=== PATIENT | female | born 1970 | race Caucasian/White ===

== ENCOUNTER → 2019-02-13 | Outpatient (CLI) | payer OTHER, SELFPAY ==
--- NOTE | 2019-02-13 13:12 | BI_ITS ---
MAMMOGRAPHY - BILATERAL SCREENING REASON FOR EXAM: Female, 48 years old. Routine annual screening examination. PERTINENT HISTORY: Non-contributory. TECHNIQUE: Digital bilateral breast sheryl (3D mammographic acquisition) in the CC and MLO projections. 2-D mediolateral oblique (MLO) and craniocaudad (CC) views of both breasts were obtained. CAD: Full Field Digital Mammography with Computer Added Detection was performed. COMPARISON: Comparison is made with prior examination dated June 02, 2016 and May 06, 2015. FINDINGS: Breast Composition: The breasts are extremely dense, which lowers the sensitivity of mammography. There are no dominant masses or suspicious calcifications. Stable benign-appearing bilateral axillary lymph nodes. No other significant abnormalities are identified. There has been no significant change since the prior study. BI/SCREEN MAMM (CAD) W/SHERYL BILAT IMPRESSION: Stable bilateral screening mammogram. Yearly follow-up mammogram recommended. (A) ASSESSMENT CATEGORY: BIRADS Category 1: Negative. A letter regarding these results will be sent to the patient by the facility within 30 days. Approximately 10% of breast cancers are not detected by mammography. A normal mammogram should not delay biopsy of a clinically suspicious abnormality. [id number] Electronically Signed: Alfred Hobbs, at 8:38 EDT , Service support ,
== END | disposition home or self-care (01) ==
LOC: OPBI 13:10
PROVIDERS: Family Provider Family Medicine; PCP Family Medicine; Referring Provider Obstetrics & Gynecology; Visit Provider Obstetrics & Gynecology
DX: Z12.31 Encounter for screening mammogram for malignant neoplasm of breast (principal)
CPT/HCPCS: 77063; 77067

== ENCOUNTER → 2019-07-17 09:38 | Outpatient (CLI) | payer OTHER, SELFPAY ==
[2019-07-17 12:49] LABS: Thyroid Stim Hormone (TSH) 2.69 uIU/mL (0.358-3.74)
== END ==
PROVIDERS: Family Provider Family Medicine; PCP Family Medicine; Referring Provider Family Medicine; Visit Provider Family Medicine
DX: K21.9 Gastro-esophageal reflux disease without esophagitis (principal)
CPT/HCPCS: 36415; 84443

== ENCOUNTER 2019-08-20 11:45 | Emergency (ER) | payer OTHER, SELFPAY ==
[2019-08-14 15:49] VITALS: BMI 20.8
[2019-08-20 11:46] VITALS: BP 163/98; PULSE 101; RESP 18; TEMP 36.6; O2SAT 98; BMI 23.0
--- NOTE | 2019-08-20 11:50 | RAD_ITS ---
STUDY: X-RAY - RIGHT SHOULDER REASON FOR EXAM: Female, 49 years old. Trauma, shoulder pain, limited range of motion. TECHNIQUE: 2 view(s) of the shoulder. COMPARISON: None. FINDINGS: Acute anterior dislocation of glenohumeral joint. No obvious fracture. Normal acromioclavicular joint. Normal acromion. Normal humeral head and visualized proximal humerus. The soft tissue structures are unremarkable. Normal visualized pulmonary apex. RAD/Shoulder min 2 Views IMPRESSION: Acute anterior dislocation glenohumeral joint. Electronically Signed: Amarjit Lazo MD at 12:48 EST Tel , Service support ,
--- NOTE | 2019-08-20 11:57 | ED.VIS.GEN ---
History of Present Illness Chief Complaint: Disclocation Informant: Patient Onset: Today Current Severity: Moderate Maximum Severity: Moderate Narrative: Fell down 13 steps but only injured her right shoulder. No head injury no loss of consciousness no neck pain no chest abdominal pain or back pain. She has no other lower or left upper extremity injuries. She has a deformity of the right shoulder with quite a bit of pain. Past Medical History - Allergies and Home Meds Allergies/Adverse Reactions: Allergies doxycycline Allergy (Unknown, Verified 08/20/19 11:49) Unknown sertraline Allergy (Unknown, Verified 08/20/19 11:49) Unknown ibuprofen [From Motrin] Allergy (Verified 08/20/19 11:49) Rash Primary Care Physician: Dev Field MD [Primary Care Provider] - Past Medical History: None Surgical History: - - section Smoking Status: Never smoker Review of Systems General: Reports: - - No loss of consciousness Eyes: Reports: Visual changes - bilaterally Cardiovascular: Denies: Chest pain Respiratory: Denies: Dyspnea Gastrointestinal: Denies: Abdominal pain Musculoskeletal: Reports: Extremity Pain Skin: Denies: Wounds Neurological: Denies: Headache, Weakness, Parasthesia Hematologic: Denies: Easy bruising, Easy bleeding Physical Exam Vital Signs/Narrative: Vital Signs Temp Pulse Resp BP Pulse Ox 08/20/19 11:46 97.8 F 101 H 18 163/98 H 98 General: Acute Distress Head: Normocephalic, Atraumatic Eyes: Perrl ENT: - - No facial trauma Neck: - - No C-spine tenderness Cardiovascular: Regular rate, Regular rhythm Respiratory: No distress, CTA bilaterally Abdomen: Soft, Nontender Back: Nontender, Normal Inspection Extremities: - - There is an obvious inferior dislocation of the right shoulder. No AC joint tenderness. Distal pulses are intact Skin: Normal color. Negative for: Trauma Neurological: Normal Strength, Normal Sensation Psychological: - - Somewhat anxious Diagnostic/Tx/Re-eval Chest X-Ray - ED: 1 View, 2 View Right shoulder x-ray interpreted by me shows a right shoulder dislocation. There are no bony abnormalities no signs of fracture. - Medical Decision Making Patient was reduced without any complications. I will discharge in stable condition. Procedures Procedure(s): Procedural sedation: After proper consent was obtained, patient had not eaten since last night, she is a healthy patient without any medical problems. She received a total of 50 mg of propofol. Patient tolerated sedation well. Shoulder reduction: A modified Milch technique was used for shoulder reduction, shoulder reduced quite well patient had no complications. A sling and swath was applied afterwards. ED Disposition - Plan for ED Patient: Disposition: Home or Assisted Living Instructions: DISLOCATION: SHOULDER (Reduced) Prescriptions: Hydrocodone Bitart/Apap 5-325 [[place] 5MG-325MG] 1 tab PO Q4H PRN PRN 2 Days #6 tab PRN Reason: Pain Prescription Printed Referrals: Trung Eduardo DO [STAFF PHYSICIAN] - 3-5 Days
[2019-08-20] MEDS: fentaNYL 100 MCG/2 ML Ampul 50 MCG IV (12:09)
[2019-08-20 12:15] VITALS: BP 170/101; BP 182/95; PULSE 91; PULSE 92; PULSE 94; RESP 18; RESP 22; O2SAT 98
[2019-08-20] MEDS: Propofol 200 MG/20 ML Vial 100 MG IV BOLUS (12:15)
[2019-08-20 12:20] VITALS: BP 175/96; PULSE 83; RESP 16; O2SAT 100
[2019-08-20 12:25] VITALS: BP 169/100; PULSE 84; RESP 18; O2SAT 98
--- NOTE | 2019-08-20 12:25 | RAD_ITS ---
STUDY: X-RAY - RIGHT SHOULDER REASON FOR EXAM: Female, 49 years old. Post reduction, shoulder pain TECHNIQUE: 1 view(s) of the shoulder. COMPARISON: 08/20/2019 1159 FINDINGS: Interval reduction of the glenohumeral joint. No obvious fracture Normal acromioclavicular joint. Normal acromion. Normal humeral head and visualized proximal humerus. The soft tissue structures are unremarkable. Normal visualized pulmonary apex. RAD/Shoulder One View IMPRESSION: Interval reduction of the glenohumeral joint. No obvious fracture. Electronically Signed: Amarjit Lazo MD at 13:23 EST Tel , Service support ,
[2019-08-20 12:30] VITALS: BP 163/85; PULSE 86; RESP 20; O2SAT 98
[2019-08-20 12:35] VITALS: BP 163/85; O2SAT 98
[2019-08-20] MEDS: oxyCODONE 5 MG Tablet PO (13:23)
== END 2019-08-20 13:27 | disposition home or self-care (01) ==
PROVIDERS: Emergency Provider Emergency Medicine; Family Provider Family Medicine; PCP Family Medicine
DX: S43.014A Anterior dislocation of right humerus, initial encounter (principal); H53.9 Unspecified visual disturbance; W10.9XXA Fall (on) (from) unspecified stairs and steps, initial encounter; Y93.9 Activity, unspecified; Y92.9 Unspecified place or not applicable
CPT/HCPCS: 23650; 73020; 73030; 96374; 99284; J7040; A4216

== ENCOUNTER → 2019-08-30 16:54 | Outpatient (CLI) | payer OTHER, SELFPAY ==
[2019-08-23 10:49] VITALS: BMI 23.0
--- NOTE | 2019-08-30 16:54 | MRI_ITS ---
STUDY: MRI RIGHT SHOULDER REASON FOR EXAM: Female, 49 years old. RIGHT shoulder pain and decreased ROM following dislocation 08/20/19 TECHNIQUE: Standardized fat and water weighted pulse sequences were obtained in all 3 orthogonal planes. COMPARISON: Right shoulder x-ray dated August 20, 2019 FINDINGS: There is supraspinatus tendinosis with tendon thickening, but without a demonstrated tendon tear. Normal infraspinatus tendon. Normal subscapularis tendon. Normal teres minor tendon. Normal supraspinatus muscle. Normal infraspinatus muscle. Normal subscapularis muscle. Normal teres minor muscle. Normal glenohumeral articulation. Normal biceps labral complex. Normal intracapsular long biceps tendon. A small truncation tear is present at the anterior aspect of the superior glenoid labrum. The remaining aspects of the labrum are intact. Normal capsulo- ligamentous complex. Normal rotator interval. Normal acromioclavicular articulation. There is a Type II morphology (curved), with a neutral orientation. A small subdeltoid bursal effusion is present. Mild patchy edema is present in the posterior and superior aspect of the humeral head compatible with a mild impaction injury/contusion. Slight concavity is also present in the cortex in this region compatible with an acute Hill-Sachs fracture. Normal visualized coracohumeral and coracoacromial ligaments. Normal quadrilateral space. Normal axillary space. Normal deltoid muscle. Normal trapezius muscle. MRI/Upper Ext Joint Only(Routine) IMPRESSION: 1. Acute and mild Hill-Sachs fracture 2. Small truncation tear of the anterior aspect of superior glenoid labrum. 3. Small joint effusion. 4. Supraspinatus tendinosis. Electronically Signed: Jose Guevara MD at 22:49 EST , Service support ,
== END ==
PROVIDERS: Family Provider Family Medicine; PCP Family Medicine; Referring Provider Orthopaedic Surgery; Visit Provider Orthopaedic Surgery
DX: S43.004A Unspecified dislocation of right shoulder joint, initial encounter (principal); M25.311 Other instability, right shoulder
CPT/HCPCS: 73221

== ENCOUNTER 2019-11-15 09:30 | Outpatient (RCR) | payer OTHER, SELFPAY ==
[2019-09-02 08:29] VITALS: BMI 23.0
--- NOTE | 2019-09-11 11:50 | HP.PTEVAL ---
Patient's Visit Information MICHELLE JIANG is a 49 year old F referred to Physical Therapy by Collins Borjas DO with a diagnosis of RIGHT SHOULDER DISLOCATION/ANTERIOR INSTABLITY/HILL SCAKS LESION. Date of Evaluation: 09/11/19 Physical Therapist: Cesar Park, PT, Cert MDT, OCS - Visit Plan Frequency: 2x /Week Duration: 8 WEEKS Plan: PRECAUTION AVOID EXTREME ER AND ADDUCTION. PT INTERVENTIONS WITH AAROM/AROM/ISOMTRICS,PROGRESS STRENGTHENING RTC/SCAPULAR,POSTURAL EX'S,CP - Subjective Findings: This 49 y/o female presents to physical therapy with right shoulder dislocation /anterior instablity/hillscah lesion. Patient fell down the steps Aug 20 fell down stairs caused dislocation of shoulder . Patient went ER had x-rays showed dislocation then MD had to relocated shoulder manually. Patient went to Dr Veliz on 08/23 then had MRI showed labral torn and [place] scah lesion. Patient had sling for comfort then finally removed. Pain located anterior shoulder described sharp. Patient has occassional tingling in arm . Patient pain affects self hygine ,ADL'S ,housework tasks above 90 degrees. Patient pain affects sleeping on right side. Patient shoulder pain affects QOL and function. Patient taking muscle relaxers. VOCATION: RN. SOCIAL: - Pain Right Shoulder Pain Intensity (Out of 10): 7 Pain Intensity Range: 10 - Objective POSTURE: mild foward posture. PALAPTION: tender anterior shoulder. NEURO: c/o parathesia/tingling ,reflexes intact. AROM: shoulder flexion ~90 degrees,abduction ~85 degrees. PROM: shoulder flexion ~150 degrees ,abd ~155 degrees in scaption,ER ~70 degrees. MMT: RTC 3+/5 ,DELTOID ~ 3-/5 - Special Tests R Shoulder Drop Sign - IS Test: Negative R Shoulder Apprehension Test - Anterior Instability: Positive R Shoulder Sulcus Sign - Inferior Laxity: Negative - Goals Goal 1:: Independant with HEP Goal Time Frame: 6-8 Weeks Goal 2:: Patient to decrease shoulder pain by 75% or > to improve function. Goal Time Frame: 6-8 Weeks Goal 3:: Patient to improve shoulder AROM flexion /abd 150 degrees or > to improve function with ADL'S. Goal Time Frame: 6-8 Weeks Goal 4:: Patient to increase strength of right shoulder RTC 4/5 and deltoid to 4-/5 to improve function with ADLS and RTW. Goal Time Frame: 6-8 Weeks Goal 5:: Patient able to return to work and housework tasks above 90 degrees to improve function with ADL'S Goal Time Frame: 6-8 Weeks Goal 6:: Patient to improve quick dash shoulder by 10 points or > to improve QOL and function. Goal Time Frame: 6-8 Weeks - Rehabilitation Potential Physical Therapy Diagnosis: This patient has right shoulder pain from anterior dislocation with pain ,decrease ROM,strength impairs ADLS' ,housework tasks and RTW,Tthus benifit from skilled PT. Rehabilitation Potential: Good - Anticipated Interventions Patient/Client Instruction: Educate patient on: Condition, Plan of Care For the Purpose of:: To decrease pain, To increase ROM, To improve muscle performance and motor function, To improve ability to perform ADL's, To increase tolerance to activity/condition/position, To improve ability of physical actions for home/community/work/leisure, To decrease soft tissue restriction, To increase flexibility/ROM, To assume or resume ADL's, To reduce risk of recurrence, To improve ability to perform tasks related to life management Therapeutic Exercise to Include: Strength training, Postural training, Passive ROM, Active ROM Comment: RTC/SCAPULAR For the Purpose of:: To decrease pain, To increase ROM, To improve muscle performance and motor function, To improve ability to perform ADL's, To increase tolerance to activity/condition/position, To improve ability of physical actions for home/community/work/leisure, To improve health of tissue, To decrease soft tissue restriction, To increase flexibility/ROM, To improve tolerance to ADL's Thank you for the opportunity to evaluate your patient. For Medicare and Medicare HMO plans, please review the plan of care and approve it. It will need to be FAXED BACK to us at [phone] for Medicare purposes. For Medicare only, by signing this I certify the plan of care. Please let me know if there are questions or concerns regarding this plan of care. Physician Signature: Date:
--- NOTE | 2019-12-31 12:52 | HP.PT.NRP ---
MICHELLE JIANG was seen in my office for initial evaluation on 09/11/19. The following Plan of Care was established for this patient: Initial Frequency: 2x /Week Initial Duration: 8 WEEKS Patient/Client Instruction: Educate patient on: Condition, Plan of Care For the Purpose of:: To decrease pain, To increase ROM, To improve muscle performance and motor function, To improve ability to perform ADL's, To increase tolerance to activity/condition/position, To improve ability of physical actions for home/community/work/leisure, To decrease soft tissue restriction, To increase flexibility/ROM, To assume or resume ADL's, To reduce risk of recurrence, To improve ability to perform tasks related to life management Therapeutic Exercise to Include: Strength training, Postural training, Passive ROM, Active ROM For the Purpose of:: To decrease pain, To increase ROM, To improve muscle performance and motor function, To improve ability to perform ADL's, To increase tolerance to activity/condition/position, To improve ability of physical actions for home/community/work/leisure, To improve health of tissue, To decrease soft tissue restriction, To increase flexibility/ROM, To improve tolerance to ADL's This patient was last seen in our office . Pertinent comments regarding their Physical therapy will appear below: Patient seen for PT for shoulder pain with patient had MRI showed bicep tendon tear and labrum . Patient PT has focused on HEP ,ROM ,strengthening RTC/scapular,postural ex's stretching. Doing well with strength RTC 12/07 ,limited with AROM with [place] activities,. Patient seen DR 12/22 thus is d/c. At this point I will be discontinuing this patient from physical therapy. I would be happy to see this patient again in the future if found appropriate by the physician. Thank you! Cesar Park, PT, Cert MDT, OCS
== END 2019-11-15 19:00 | disposition home or self-care (01) ==
LOC: PT 09:30
PROVIDERS: Family Provider Family Medicine; PCP Family Medicine; Referring Provider Orthopaedic Surgery; Visit Provider Orthopaedic Surgery
DX: S43.004D Unspecified dislocation of right shoulder joint, subsequent encounter (principal); M25.311 Other instability, right shoulder; S42.291D Other displaced fracture of upper end of right humerus, subsequent encounter for fracture with routine healing
CPT/HCPCS: 97110; 97161

== ENCOUNTER → 2020-02-26 10:18 | Outpatient (CLI) | payer OTHER, SELFPAY ==
[2019-12-23 09:53] VITALS: BMI 23.0
--- NOTE | 2020-02-26 10:20 | BI_ITS ---
MAMMOGRAPHY - BILATERAL SCREENING 3-D TOMOSYNTHESIS REASON FOR EXAM: Female, 50 years old. Routine screening PERTINENT HISTORY: NO FAM HX -- CURRENT BC X 20+ YRS. -- NO SX. TECHNIQUE: 2-D mammograms and 3-D Tomosynthesis of the breast (s) were performed. CAD was performed. COMPARISON: 02/13/2019 FINDINGS: The breast composition is heterogeneously dense that can obscure small breast masses. Scattered benign calcifications are seen. No dense spiculated masses or suspicious microcalcifications are identified. No architectural distortion is identified. There is no skin thickening or retraction. There has been no significant change since the prior study. BI/SCREEN MAMM (CAD) W/SHERYL BILAT IMPRESSION: No mammographic signs of malignancy. Routine yearly mammograms recommended. ASSESSMENT CATEGORY: BIRADS Category 2: Benign. A letter regarding these results will be sent to the patient by the facility within 30 days. FOLLOW UP RECOMMENDATION: Yearly follow up mammogram recommended. (A) Approximately 10% of breast cancers are not detected by mammography. A normal mammogram should not delay biopsy of a clinically suspicious abnormality. Electronically Signed: Zi Blackburn MD at 11:19 EDT , Service support ,
== END ==
PROVIDERS: PCP Family Medicine; Referring Provider Obstetrics & Gynecology; Visit Provider Obstetrics & Gynecology
DX: Z12.31 Encounter for screening mammogram for malignant neoplasm of breast (principal)
CPT/HCPCS: 77063; 77067

== ENCOUNTER 2020-09-01 07:01 | Day surgery (SDC) | payer OTHER, SELFPAY ==
[2020-06-11 08:43] VITALS: BMI 23.5
[2020-09-01] VITALS (7 sets, daily range): BP systolic 127–144; BP diastolic 77–94; PULSE 79–101; RESP 14–16; TEMP 36.1–36.6; O2SAT 96–100; BMI 25.1
--- NOTE | 2020-09-01 07:32 | HP.PCM_ITS ---
Problem List (1) Screening for intestinal cancer Status: Acute (2) GERD (gastroesophageal reflux disease) Status: Acute History and Physical Date of Admission: 09/01/20 Intake Visit Reasons: Update history/physical EGD and C-scope Allergies doxycycline Allergy (Unknown, Verified 06/11/20 08:56) Unknown sertraline Allergy (Unknown, Verified 06/11/20 08:56) Unknown ibuprofen [From Motrin] Allergy (Verified 06/11/20 08:56) Rash Medications norethindrone 1 mg-ethinyl estradiol 35 mcg tablet 1 tab PO DAILY 08/14/19 [History Confirmed 06/11/20] [facility] Medical History (Updated 06/11/20 @ 08:55 by Elsa Guerrero) Screening for intestinal cancer (Acute) GERD (gastroesophageal reflux disease) (Acute) Allergic rhinitis (Acute) Anxiety and depression (Acute) Herpes labialis (Acute) Hyperlipidemia (Acute) Lumbar radiculopathy (Acute) Migraine (Acute) Surgical History (Updated 08/20/19 @ 12:[address] Loyd Lawrence MD) History of (Acute) Family History Mother Hypertension Hyperlipidemia Lung cancer Heart disease Father Heart disease Hypertension Kidney disease Sister Cervical cancer Brother Hypertension Social History (Updated 06/11/20 @ 09:[address] Cedrick Pulliam MD) Smoking Status: Never smoker alcohol intake: never substance use type: does not use additional social history: does not use aspirin or ibuprofen HPI HPI HPI: MICHELLE JIANG, is a 50 F who presents to the office today for repeat surgical consultation for consideration of esophagogastroduodenoscopy and colonoscopy. She was having significant GERD. Significant amount of stress in her life. After I saw her unfortunate she fell down stairs causing a dislocation of her right shoulder. She had to delay her endoscopy. She has never had a screening colonoscopy. Her GERD symptoms have improved but she still takes antacids My notes from September 03 2019 reflect the following: HPI: MICHELLE JIANG, is a 49 F who presents to the office today for surgical consultation regarding heartburn/gastroesophageal reflux disease as well as need for screening colonoscopy. The patient recently lost her mother to lung cancer. At the same setting her had an acute myocardial infarction. There is been a significant amount of stress. However over the past year or more she has had severe heartburn. Is worse at night. She is medication dependent on pantoprazole. If she stops that medicine she gets recurrent symptoms. She has not had any change in her bowel habits. No bright red blood per rectum or melena. She does have a family history where she thinks both her mother and she thinks her father both had colon polyps. The patient has had her primary care physician Dr Dev Field reviewed these findings and he is referring her to me for consideration of evaluation of the symptoms with a upper and lower endoscopy. A written copy of my surgical consult recommendations will be returned to him. HPI HPI HPI: MICHELLE JIANG, is a 50 F who presents to the office today for Exam Const General: cooperative, healthy appearing, comfortable, no acute distress Nutritional Appearance: average body habitus Orientation: alert, awake HENMT Head: normal to inspection Resp Effort & Inspection: normal respiratory effort Auscultation: clear to auscultation bilaterally Cardio Rate: regular rate Rhythm: regular rhythm GI Palpation: soft, no hepatosplenomegaly Auscultation: normal bowel sounds Skin General: no rashes or lesions noted Neuro Cognition: normal cognition Extrem General: no calf tenderness Psych Affect: normal affect Assessment & Plan Problems 1. Screening for intestinal cancer Z12.10 2. Gastroesophageal reflux disease, esophagitis presence not specified K21.9 Plan I recommended the patient a combined esophagogastroduodenoscopy the past biopsy and colonoscopy with possible biopsy or polypectomy is indicated. She is aware of the technique, benefit, risk and alternatives. She has had an opportunity to ask and have questions answered. We will schedule and proceed at her discre tion. She does present with her today who also proceeds with a screening colonoscopy. Her right shoulder dislocation now is healed and she is able to pursue the bowel prep. It is of note that her GERD symptoms have improved but not resolved. Copy: Dr Dev Pulliam M.D., F.A.C.S. Orders Orders: Colonoscopy Today EGD Today Coding Level of Care Code Off vis,est,level 2 Diagnoses Screening for intestinal cancer Z12.10 Gastroesophageal reflux disease, esophagitis presence not specified K21.9 ??Esophagitis presence: esophagitis presence not specified I have re-examined the patient. There are no clinical changes since date of exam. Procedure Criteria Procedure Type: Elective COVID Risk Discussion: The surgeon/proceduralist and patient have discussed in detail the risk of exposure to and/or potential harm posed by the COVID-19 virus with having a surgery/procedure at this time versus the risk of delaying the surgery/procedure. It is not possible to know either the risk of delaying the surgery or procedure or chance of getting an infection with perfect accuracy, but a joint decision was made between the patient and the surgeon/proceduralist to proceed at this time with the scheduled surgery/procedure as indicated on the consent form.
[2020-09-01 07:33] LABS: Internal QC Validated? YES +Cl - CLEAR BKGD; Pregnancy, Urine Negative Negative
[2020-09-01] MEDS: Lactated Ringers 1,000 ML 100 ML IV (07:47)
--- NOTE | 2020-09-01 08:00 | IMM_PTH ---
PATIENT: MICHELLE JIANG LOC: EN U#:[id number] AGE/SX: 50/F ROOM: RE09/01/[address]: Dr. Cedrick Pulliam MD : 1970 BED: DIS: 09/01/2020 SPEC #: [id number] RECD: 09/01/20 12:33 STATUS: CLAUDIA RERobin #: [id number] KENNY: 09/01/20 08:[address]: Cedrick Pulliam DEPT: IMMUNOHISTOCHEMISTRY RECD BY: Emelia Richter ENTERED: 09/01/20 12:33 SP TYPE: IMMUNO OTHR DR: Dr. Dev Field MD Tissues: B - Stomach, NOS Procedures: H Pylori (initial) PHYSICIAN & INSTITUTION [place] [id number] SPECIMEN INFORMATION: Tissue Source: B - Antrum polyp biopsy Clinical Info: Intestinal cancer screening; GERD, esophagitis Specimen Number: [id number] CPT code: 83880 METHODOLOGY: Deparaffinized sections of prefer/formalin-fixed tissue or PAP/DQ stained slides are incubated with monoclonal/polyclonal antibodies/oligonucleotide probes. Localization is made via biotin free immunoperoxidase method. Appropriate controls are performed and reacted as expected. Results on target cell population are indicated in the following table: RESULTS: ANTIBODY / CLONE RESULT Block B H Pylori (polyclonal) positive These tests were developed and their performance characteristics determined by [facility]. They may not have been cleared or approved by the U.S. Food and Drug Administration. The FDA has determined that such clearance or approval is not necessary. INTERPRETATION: Antrum polyp, biopsy: Positive for abundant Helicobacter pylori organisms. AM:jermaine 09/02/20
--- NOTE | 2020-09-01 08:00 | COLBX_PTH ---
PATIENT: MICHELLE JIANG LOC: EN U#:[id number] AGE/SX: 50/F ROOM: RE09/01/[address]: Dr. Cedrick Pulliam MD : 1970 BED: DIS: 09/01/2020 SPEC #: [id number] RECD: 09/01/20 11:42 STATUS: CLAUDIA CRUZ #: [id number] KENNY: 09/01/20 08:[address]: Cedrick Pulliam DEPT: SURGICAL PATHOLOGY RECD BY: Paul Shipley ENTERED: 09/01/20 12:10 SP TYPE: COLON BX OTHR DR: Dr. Dev Field MD Tissues: A - Duodenum, NOS B - Gastric mucous membrane C - Esophagus, NOS D - COLON BIOPSY Procedures: Surgery Specimen Level IV HEADER OPERATION: [place] [place] DIAGNOSIS: Screening for intestinal cancer, GERD, esophagitis TISSUE SUBMITTED: A - Duodenum biopsy, B - Antrum polyp biopsy for H. pylori and path, C - Distal esophagus biopsies, D - Random colon biopsies MICROSCOPIC DIAGNOSIS A. Duodenum, biopsy: No pathologic change. B. Gastric antrum, biopsy: Chronic active gastritis. See comment. C. Distal esophagus, biopsy: Fragments of gastric mucosa with chronic inflammation. Fragments of squamous mucosa with no pathologic change. D. Colon, random biopsy: Melanosis coli. AM:jermaine 09/02/20 COMMENT B. The results of immunohistochemistry for Helicobacter pylori will be reported separately ([id number]). MICROSCOPIC DESCRIPTION Slides are reviewed. GROSS DESCRIPTION A - Received in fixative is one container labeled with the patient's name and designated duodenum biopsy. The specimen consists of one irregular fragment of light leung soft tissue that measures 0.3 x 0.3 x 0.1 cm. The specimen is totally submitted in one cassette. B - Received in fixative is one container labeled with the patient's name and designated antrum biopsy. The specimen consists of multiple irregular fragments of light leung soft tissue that in aggregate measure 1 x 0.3 x 0.1 cm. The specimen is totally submitted in one cassette. C - Received in fixative is one container labeled with the patient's name and designated distal esophagus biopsy. The specimen consists of multiple irregular fragments of light leung soft tissue that in aggregate measure 1 x 0.5 x 0.1 cm. The specimen is totally submitted in one cassette. D - Received in fixative is one container labeled with the patient's name and designated random colon biopsy. The specimen consists of multiple irregular fragments of light leung soft tissue that in aggregate measure 1.5 x 1 x 0.1 cm. The specimen is totally submitted in one cassette. / AM:jermaine 09/01/20 TC:2 CPT: 99322 x4
--- NOTE | 2020-09-01 08:41 | OP.CCLET_ITS ---
09/01/2020 Dev Field [address] [place] [address] Re : Upper GI endoscopy procedure for Britany Rogers Dear Dr. Field This procedure was performed on Tuesday, September 01, 2020. My impressions and recommendations are as follows: Impressions : - LA Grade A reflux esophagitis. Biopsied. - Small hiatal hernia. - Chronic gastritis. Biopsied. - Normal examined duodenum. Biopsied. Recommendations : - Await pathology results. - Discharge patient to home. - Resume previous diet. - Continue present medications. - Telephone my office for pathology results in 1 week. My findings are described in the full procedure note, which is enclosed. If I can be of further assistance, please feel free to contact me at Doctor phone number(s): Work: . Sincerely, Cedrick Pulliam MD 09/01/2020 8:40:46 AM This report has been signed electronically.
--- NOTE | 2020-09-01 08:41 | OP.EGD_ITS ---
Patient Name: Britany Rogers Procedure Date: 09/01/2020 8:02 AM Date of : 1970 Age: 50 Procedure: Upper GI endoscopy Indications: Suspected gastro-esophageal reflux disease Providers: Cedrick Pulliam MD Referring MD: Dev Field Medicines: See the Anesthesia note for documentation of the administered medications Complications: No immediate complications. Procedure: Pre-Anesthesia Assessment: - Prior to the procedure, a History and Physical was performed, and patient medications and allergies were reviewed. The patient's tolerance of previous anesthesia was also reviewed. The risks and benefits of the procedure and the sedation options and risks were discussed with the patient. All questions were answered, and informed consent was obtained. Prior Anticoagulants: The patient has taken no previous anticoagulant or antiplatelet agents. ASA Grade Assessment: II - A patient with mild systemic disease. After reviewing the risks and benefits, the patient was deemed in satisfactory condition to undergo the procedure. After obtaining informed consent, the endoscope was passed under direct vision. Throughout the procedure, the patient's blood pressure, pulse, and oxygen saturations were monitored continuously. The gastroscope was introduced through the mouth, and advanced to the second part of duodenum. The upper GI endoscopy was accomplished without difficulty. The patient tolerated the procedure well. Scope In: 8:09:44 AM Scope Out: 8:15:50 AM Total Procedure Duration Time 0 hours 6 minutes 6 seconds Findings: LA Grade A (one or more mucosal breaks less than 5 mm, not extending between tops of 2 mucosal folds) esophagitis with no bleeding was found 38 cm from the incisors. Biopsies were taken with a cold forceps for histology. A small hiatal hernia was present. Diffuse mild inflammation characterized by granularity was found in the gastric antrum. Biopsies were taken with a cold forceps for histology. The examined duodenum was normal. Biopsies were taken with a cold forceps for histology. Impression: - LA Grade A reflux esophagitis. Biopsied. - Small hiatal hernia. - Chronic gastritis. Biopsied. - Normal examined duodenum. Biopsied. Recommendation: - Await pathology results. - Discharge patient to home. - Resume previous diet. - Continue present medications. - Telephone my office for pathology results in 1 week. Procedure Code(s): --- Professional --- 44758, Esophagogastroduodenoscopy, flexible, transoral; with biopsy, single or multiple Diagnosis Code(s): --- Professional --- K21.0, Gastro-esophageal reflux disease with esophagitis K44.9, Diaphragmatic hernia without obstruction or gangrene K29.50, Unspecified chronic gastritis without bleeding CPT copyright 2017 [employer]. All rights reserved. The codes documented in this report are preliminary and upon supervisor cab review may be revised to meet current compliance requirements. Cedrick Pulliam MD 09/01/2020 8:40:46 AM This report has been signed electronically. Number of Addenda: 0 Note Initiated On: 09/01/2020 8:02 AM
--- NOTE | 2020-09-01 08:43 | OP.COLON_ITS ---
Patient Name: Britany Rogers Procedure Date: 09/01/2020 8:16 AM Date of : 1970 Age: 50 Procedure: Colonoscopy Indications: Screening for colorectal malignant neoplasm Providers: Cedrick Pulliam MD Referring MD: Dev Field Medicines: See the Anesthesia note for documentation of the administered medications Patient Profile: Last Colonoscopy: none. The patient's first colonoscopy is today. Complications: No immediate complications. Procedure: Pre-Anesthesia Assessment: - Prior to the procedure, a History and Physical was performed, and patient medications and allergies were reviewed. The patient's tolerance of previous anesthesia was also reviewed. The risks and benefits of the procedure and the sedation options and risks were discussed with the patient. All questions were answered, and informed consent was obtained. Prior Anticoagulants: The patient has taken no previous anticoagulant or antiplatelet agents. ASA Grade Assessment: II - A patient with mild systemic disease. After reviewing the risks and benefits, the patient was deemed in satisfactory condition to undergo the procedure. After I obtained informed consent, the scope was passed under direct vision. Throughout the procedure, the patient's blood pressure, pulse, and oxygen saturations were monitored continuously. The pediatric colonoscope was introduced through the anus and advanced to the cecum, identified by appendiceal orifice and ileocecal valve. The colonoscopy was somewhat difficult due to a tortuous colon. Successful completion of the procedure was aided by applying abdominal pressure. The patient tolerated the procedure well. The quality of the bowel preparation was good. The ileocecal valve and the appendiceal orifice were photographed. Scope In: 8:18:00 AM Scope Withdrawal Time 0 hours 6 minutes 30 seconds Scope Out: 8:32:39 AM Total Procedure Duration Time 0 hours 14 minutes 39 seconds Findings: Hemorrhoids were found on perianal exam. Multiple diverticula were found in the sigmoid colon. Biopsies for histology were taken with a cold forceps from the entire colon for evaluation of microscopic colitis. Impression: - Hemorrhoids found on perianal exam. - Diverticulosis in the sigmoid colon. - Biopsies were taken with a cold forceps from the entire colon for evaluation of microscopic colitis. Recommendation: - Discharge patient to home. - Resume previous diet. - Continue present medications. - Telephone my office for pathology results in 1 week. - Repeat colonoscopy in 10 years for screening purposes. Procedure Code(s): --- Professional --- 90579, Colonoscopy, flexible; with biopsy, single or multiple Diagnosis Code(s): --- Professional --- Z12.11, Encounter for screening for malignant neoplasm of colon K64.9, Unspecified hemorrhoids K57.30, Diverticulosis of large intestine without perforation or abscess without bleeding CPT copyright 2017 [employer]. All rights reserved. The codes documented in this report are preliminary and upon medical insurance coder review may be revised to meet current compliance requirements. Cedrick Pulliam MD 09/01/2020 8:43:30 AM This report has been signed electronically. Number of Addenda: 0 Note Initiated On: 09/01/2020 8:16 AM
--- NOTE | 2020-09-01 08:43 | OP.CCLET_ITS ---
09/01/2020 Dev Field [address] [place] [address] Re : Colonoscopy procedure for Britany Rogers Dear Dr. Field This procedure was performed on Tuesday, September 01, 2020. My impressions and recommendations are as follows: Impressions : - Hemorrhoids found on perianal exam. - Diverticulosis in the sigmoid colon. - Biopsies were taken with a cold forceps from the entire colon for evaluation of microscopic colitis. Recommendations : - Discharge patient to home. - Resume previous diet. - Continue present medications. - Telephone my office for pathology results in 1 week. - Repeat colonoscopy in 10 years for screening purposes. My findings are described in the full procedure note, which is enclosed. If I can be of further assistance, please feel free to contact me at Doctor phone number(s): Work: . Sincerely, Cedrick Pulliam MD 09/01/2020 8:43:30 AM This report has been signed electronically.
== END 2020-09-01 09:48 | disposition home or self-care (01) ==
LOC: EN 07:02 → AC 07:02
PROVIDERS: Anesthesiology; PCP Family Medicine; Referring Provider Family Medicine; Visit Provider Surgery
PROC: 0DJD8ZZ Inspection of Lower Intestinal Tract, Via Natural or Artificial Opening Endoscopic (ICD-10-PCS; CPT 45378; principal; 2020-09-01 07:55)
DX: Z12.11 Encounter for screening for malignant neoplasm of colon (principal); K64.9 Unspecified hemorrhoids; K57.30 Diverticulosis of large intestine without perforation or abscess without bleeding; K29.50 Unspecified chronic gastritis without bleeding; K21.00 Gastro-esophageal reflux disease with esophagitis, without bleeding; K44.9 Diaphragmatic hernia without obstruction or gangrene; Z20.828 Contact with and (suspected) exposure to other viral communicable diseases
CPT/HCPCS: 43239; 45380; 81025; 87426; 88305; 88342; C9803; J7120

== ENCOUNTER → 2020-11-04 | Outpatient (CLI) | payer OTHER, SELFPAY ==
[2020-09-01 07:31] VITALS: BMI 25.1
[2020-11-07 15:42] LABS: H. PYLORI STOOL AG Negative (Negative)
== END | disposition home or self-care (01) ==
LOC: LABSPEC 14:25
PROVIDERS: PCP Family Medicine; Referring Provider Surgery; Visit Provider Surgery
DX: A04.8 Other specified bacterial intestinal infections (principal)

== ENCOUNTER 2020-11-28 20:10 | Emergency (ER) | payer OTHER, SELFPAY ==
[2020-09-01 07:31] VITALS: BMI 25.1
[2020-11-28 20:12] VITALS: BP 159/111; PULSE 126; RESP 16; TEMP 36.6; O2SAT 98; BMI 26.2
--- NOTE | 2020-11-28 20:28 | CT_ITS ---
STUDY: CT BRAIN WITHOUT CONTRAST REASON FOR EXAM: Female, 50 years old. headache RADIATION DOSAGE (If Supplied By Facility): CTDIvol = ( 44.99 ) mGy, DLP = ( 779.24 ) mGycm TECHNIQUE: Transaxial CT imaging of the brain was performed without administration of intravenous contrast material. Individualized dose optimization techniques were used for this CT. COMPARISON: No relevant priors. FINDINGS: Normal soft tissue structures. Normal calvarium. Normal size ventricles and extra-axial spaces for the patient''s age. Normal white matter tracts of the cerebral hemispheres. Normal basal ganglia and thalami. Normal brainstem. Normal cerebellum. Incidental note of tiny midline lipoma in the quadrigeminal cistern, 7 mm in greatest dimension and another anterior to the pineal gland, 4 mm in size. There is no intracranial hemorrhage. There are no findings of an acute ischemic infarction. Normal visualized paranasal sinuses. CT/Brain/Head without Contrast IMPRESSION: No definite acute or significant abnormality seen. Electronically Signed: Jacinto Goodrich MD at 21:12 EDT , Service support ,
--- NOTE | 2020-11-28 20:31 | ED.VIS.GEN ---
History of Present Illness Chief Complaint: General Illness Informant: Patient Onset: Days Context: Gradual Onset Current Severity: Moderate Maximum Severity: Moderate Narrative: Patient presents secondary to headache and just not feeling like herself. She had an epidural injection in her lower back on Monday, . She states that she woke the next morning with a frontal headache. She does have a history of migraines but this was not typical of her migraine headache. She states she overall is not felt her normal self and has had some sweats and loose stools as well. No fever or chills. - Past Medical History (1) Anxiety and depression Status: Chronic (2) High cholesterol Status: Chronic (3) Migraines Status: Chronic (4) GERD (gastroesophageal reflux disease) Status: Chronic Past Medical History - Allergies and Home Meds Allergies/Adverse Reactions: Allergies doxycycline Allergy (Unknown, Verified 11/28/20 20:10) Unknown sertraline Allergy (Unknown, Verified 11/28/20 20:10) Unknown Primary Care Physician: Dev Field MD [Primary Care Provider] - Prior records reviewed: Yes Surgical History: - Lives: With Family Smoking Status: Never smoker Review of Systems General: Reports: Sweats. Denies: Chills, Fever Eyes: Denies: Visual changes - bilaterally ENT: Denies: Bilateral ear pain Cardiovascular: Denies: Chest pain, Palpitations Respiratory: Denies: Dyspnea, Cough Gastrointestinal: Reports: Diarrhea. Denies: Abdominal pain Genitourinary: Denies: Dysuria Musculoskeletal: Denies: Extremity Pain Neurological: Reports: Headache Hematologic: Denies: Easy bruising, Easy bleeding Allergy: Denies: Uticaria Physical Exam Vital Signs/Narrative: Vital Signs Temp Pulse Resp BP Pulse Ox 11/28/20 20:12 97.9 F 126 H 16 159/111 H 98 Inital Vital Signs reviewed: Yes General: Well nourished, Well developed Head: Normocephalic ENT: Moist mucous membranes Neck: Supple, - - No cervical tenderness. Cardiovascular: Regular rate, Regular rhythm Respiratory: No distress, CTA bilaterally Abdomen: Soft, Nontender, Normal bowel sounds Skin: Normal color Neurological: Alert, Oriented x3, Normal Strength, Normal Sensation Psychological: Normal affect Diagnostic/Tx/Re-eval Impressions Brain CT 11/28/20 20:28 IMPRESSION: No definite acute or significant abnormality seen. Electronically Signed: Jacinto Goodrich MD at 21:12 EDT , Service support , 11/28/20 20:28 Brain/Head without Contrast [CT] Stat Laboratory Results 11/28/20 11/28/20 11/28/20 20:24 20:42 20:42 WBC 13.9 H RBC 5.27 Hgb 15.5 H Hct 47.2 H MCV 89.6 MCH 29.4 MCHC 32.8 RDW Std Deviation 42.5 RDW Coeff of Jcarlos 12.9 Plt Count 463 H MPV 9.4 Immature Gran % (Auto) 0.600 Neut % (Auto) 63.5 Lymph % (Auto) 27.1 [place] % (Auto) 7.5 Eos % (Auto) 0.7 Baso % (Auto) 0.6 Absolute Neuts (auto) 8.9 H Absolute Lymphs (auto) 3.77 Nucleated RBC % 0 Sodium 140 Potassium 3.8 Chloride 106 Carbon Dioxide 29.0 Anion Gap 5 BUN 15 Creatinine 0.62 Estim Creat Clear Calc 83.95 Est GFR (MDRD) Af Amer 130 Est GFR (MDRD) Non-Af 108 BUN/Creatinine Ratio 24.3 H Glucose 104 Calcium 9.2 Urine Color Yellow Urine Clarity Sl. Cloudy Urine pH 7.0 Ur Specific [place] 1.015 Urine Protein 30 H Urine Glucose (UA) Normal Urine Ketones Negative Urine Occult Blood 150 H Urine Nitrite Negative Urine Bilirubin Negative Urine Urobilinogen 4 H Ur Leukocyte Esterase 25 H Urine RBC 0-5 SEEN Urine WBC 0-5 SEEN Ur Squamous Epith Cells 0-5 SEEN Urine Bacteria 0 SEEN Urine Mucus 1+ - Medical Decision Making Patient is given a liter IV fluids along with Toradol, Reglan, Benadryl. On repeat evaluation headache is improving. CT scan of the head is unremarkable. Lab work reveals a mildly elevated white count, likely secondary to steroid epidural injection. I do not believe she has a true spinal headache as she is able to sit with her head elevated but leaned back against the bed and notes improvement in her headache. I did encourage increased fluid intake and if she gets to the point where she has true symptoms of a spinal headache she can try increasing her caffeine intake through drinks or caffeine pills. Patient voices understanding and agreement. She will contact her pain management physician. ED Disposition - Plan for ED Patient: Disposition: Home or Assisted Living Diagnosis: Cephalgia Instructions: Self-Care for Headaches Referrals: Dev Field MD [Primary Care Provider] - Sammy Brunson MD [STAFF PHYSICIAN] -
[2020-11-28 20:43] LABS: Bacteria 0 SEEN /hpf (None Seen)
[2020-11-28 20:44] LABS: Color, Urine Yellow (Yellow); Glucose, Dipstick Normal (Normal); Ketone-Dipstick Negative (Negative); Leukocyte Esterase-Dipstick 25 /ul (Negative); Nitrite-Dipstick Negative (Negative); Occult Blood-Urine 150 /ul (Negative); Protein-Dipstick 30 mg/dl (Negative); Specific Gravity, Urine 1.015 (1.002-1.030); Urine Bilirubin Dipstick Negative (Negative); Urine Clarity Sl. Cloudy (Clear); Urine Urobilinogen 4 mg/dl (Normal)
[2020-11-28] MEDS: 0.9% Normal Saline 1,000 ML 1000 ML IV (20:45)
[2020-11-28] MEDS: Ketorolac 30 MG/ML Syringe IV (20:46)
[2020-11-28] MEDS: DiphenhydrAMINE 50 MG/ML Syringe 25 MG IV (20:46)
[2020-11-28] MEDS: Metoclopramide 10 MG/2 ML Vial IV (20:46)
[2020-11-28 20:48] LABS: Absolute Lymphocyte Count 3.77 X10^3/uL (0.83-4.51); Absolute Neutrophil Count 8.9 X10^3/uL (2.0-7.7); Basophil# 0.08 X10^3/uL; Basophil% 0.6 % (0-1); Eosinophils% 0.7 % (0-5); Hematocrit 47.2 % (37-47); Hemoglobin 15.5 g/dL (12.0-15.0); Lymphocyte # 3.77 X10^3/ul (4.0); Lymphocyte % 27.1 % (19-41); Mean Corp Hgb Conc 32.8 g/dL (32-36); Mean Corpuscular Hgb 29.4 pg (27.0-32.0); Mean Corpuscular Volume 89.6 fL (81-99); Mean Platelet Vol. 9.4 fl (6.2-12.0); Monocyte# 1.04 X10^3/uL; Monocyte% 7.5 % (0-10); NRBC Flagged by Analyzer 0 % (0-5); Neutrophil # 8.85 X10^3/uL (2.7-7.7); Neutrophil % 63.5 % (47-70); Platelet Count 463 K/mm3 (150-450); RBC Distribution Width CV 12.9 % (11.6-14.6); RBC Distribution Width SD 42.5 fl (35.1-43.9); Red Blood Count 5.27 M/mm3 (4.2-5.4); White Blood Count 13.9 K/mm3 (4.4-11.0)
[2020-11-28 20:53] LABS: Red Blood Cells-Urine 0-5 SEEN /hpf (0-5); Squamous Epithelial Cells - UA 0-5 SEEN /hpf (5-10); White Blood Cells 0-5 SEEN /hpf (0-5)
[2020-11-28 20:54] LABS: Mucous, Urine 1+ /hpf (<or=2+)
[2020-11-28 21:02] LABS: Anion Gap 5 (5-15); BUN 15 mg/dL (7-18); BUN/Creat Ratio 24.3 RATIO (10-20); Calcium,Total 9.2 mg/dL (8.5-10.1); Chloride 106 mmol/L (98-107); Creatinine, Serum 0.62 mg/dL (0.55-1.02); EST Glomerular Filtration Rate 108 mL/min (>60); Est Glom Filt Rate - Afr Amer 130 mL/min (>60); Estimated Creatinine Clearance 83.95 ml/min; Glucose 104 mg/dL (74-106); Potassium 3.8 mmol/L (3.5-5.1); Sodium Level 140 mmol/L (136-145)
[2020-11-28 21:50] VITALS: PULSE 78; RESP 16
== END 2020-11-28 21:51 | disposition home or self-care (01) ==
PROVIDERS: Emergency Provider Emergency Medicine; PCP Family Medicine
DX: R51.9 Headache, unspecified (principal)
CPT/HCPCS: 70450; 80048; 81001; 85025; 96361; 96374; 96375; 99283; J7030; A4216

== ENCOUNTER → 2021-04-09 07:16 | Outpatient (CLI) | payer OTHER, SELFPAY ==
--- NOTE | 2021-04-09 07:18 | BI_ITS ---
MAMMOGRAPHY - BILATERAL SCREENING REASON FOR EXAM: Female, 51 years old. Routine annual screening examination. PERTINENT HISTORY: Breast screen TECHNIQUE: Digital bilateral breast sheryl (3D mammographic acquisition) in the CC and MLO projections. 2-D mediolateral oblique (MLO) and craniocaudad (CC) views of both breasts were obtained. CAD: Full Field Digital Mammography with Computer Added Detection was performed. COMPARISON: 02/26/2020 FINDINGS: Breast Composition: Dense There are no dominant masses or suspicious calcifications. No other significant abnormalities are identified. BI/SCRN MAMM (CAD)W/SHERYL BILAT IMPRESSION: Stable bilateral screening mammogram. Yearly follow-up mammogram recommended. (A) ASSESSMENT CATEGORY: BIRADS Category 1: Negative. A letter regarding these results will be sent to the patient by the facility within 30 days. BR1 Approximately 10% of breast cancers are not detected by mammography. A normal mammogram should not delay biopsy of a clinically suspicious abnormality. [id number] Electronically Signed: Dev Vaughn DO at 14:33 EDT Tel , Service support ,
== END ==
PROVIDERS: PCP Family Medicine; Referring Provider Obstetrics & Gynecology; Visit Provider Obstetrics & Gynecology
DX: Z12.31 Encounter for screening mammogram for malignant neoplasm of breast (principal)
CPT/HCPCS: 77063; 77067

== ENCOUNTER 2021-06-09 14:23 | Emergency (ER) | payer OTHER, SELFPAY ==
[2021-06-09 14:23] VITALS: BP 139/100; PULSE 85; RESP 20; TEMP 36.2; BMI 23.8
--- NOTE | 2021-06-09 14:33 | EDS_ITS ---
HPI History of Present Illness Chief Complaint: Flank Pain Informant: patient Onset/Context/Timing Onset: Today Narrative Narrative: Sudden nontraumatic left flank pain an hour prior to arrival. She was at the store when symptoms occurred. Sharp sensations intermittent spasms. Nausea without vomiting. States sweaty with the pain. No history of kidney stones. No radicular symptoms. No urinary symptoms. Denies any gastric ulcer history of kidney injury history. Prior similar symptoms: No PFSH PFSH Medical History (Updated 06/09/21 @ 15:[address] Vin Arrieta DO) Allergic rhinitis Anxiety and depression Dislocation of right shoulder joint GERD (gastroesophageal reflux disease) Herpes labialis Hyperlipidemia Lumbar radiculopathy Migraine Screening for intestinal cancer Home Medications norethindrone 1 mg-ethinyl estradiol 35 mcg tablet 1 tab PO DAILY 08/14/19 [History Last Taken Unknown] lansoprazole 30 mg capsule,delayed release 30 mg PO BID #28 cap 09/07/20 [Rx Last Taken Unknown] ibuprofen 600 mg PO Q6H PRN PRN #20 tab 06/09/21 [Rx Last Taken Unknown] ondansetron 4 mg PO Q6H PRN #10 tab 06/09/21 [Rx Last Taken Unknown] oxycodone-acetaminophen [Percocet] 1 tab PO Q6H PRN 3 Days #12 tab 06/09/21 [Rx Last Taken Unknown] tamsulosin [Flomax] 0.4 mg PO DAILY #7 cap 06/09/21 [Rx Last Taken Unknown] Allergy/AdvReac Type Severity Reaction Status Date / Time doxycycline Allergy Unknown Unknown Verified 11/28/20 20:10 sertraline Allergy Unknown Unknown Verified 11/28/20 20:10 Family History Mother Hypertension Hyperlipidemia Lung cancer Heart disease Father Heart disease Hypertension Kidney disease Sister Cervical cancer Brother Hypertension Surgical History History of Social History Smoking Status: Never smoker alcohol intake: never substance use type: does not use additional social history: does not use aspirin or ibuprofen ROS ROS ED Constitutional Constitutional ED: Denies chills, fever(s) or sweats Eyes Eyes: Denies change in vision ENT ENT ED: Denies dysphagia or sore throat Cardiovascular Cardiovascular: Denies chest pain, leg edema, palpitations or racing heartbeat Respiratory/Chest Respiratory/Chest: Denies cough, dyspnea or dyspnea on exertion Gastrointestinal Gastrointestinal: Reports nausea; Denies abdominal pain, diarrhea or vomiting Genitourinary Genitourinary ED: Denies dysuria, hematuria or urinary frequency Musculoskeletal Musculoskeletal: Reports back pain; Denies extremity pain or neck pain Integumentary Denies rash or wounds Neurologic Neurologic: Denies headache(s), paresthesias or weakness EXAM Physical Exam Const Vital Signs: 06/09/21 14:23 06/09/21 14:42 06/09/21 14:45 Temperature 97.2 F L Temperature Source Temporal Pulse Rate 85 69 Respiratory Rate 20 H 15 Respiratory Pattern Normal Blood Pressure 139/100 H 158/98 H Blood Pressure Mean 113 118 Pulse Ox 99 Oxygen Delivery Method Room Air 06/09/21 16:32 Temperature Temperature Source Pulse Rate 90 Respiratory Rate 15 Respiratory Pattern Blood Pressure 135/88 H Blood Pressure Mean Pulse Ox 97 Oxygen Delivery Method Positive well nourished and well developed Constitutional Narrative: Uncomfortable, nontoxic General Appearance ED: well developed HEENT Reports moist mucous membranes normocephalic and atraumatic Eyes PERRL, EOMs intact bilaterally and conjunctivae normal General Eye ED: Yes normal appearance of both eyes Neck no lymphadenopathy and supple General: Negative for tenderness Chest Wall Chest: Negative for tenderness Resp normal respiratory effort and normal air movement Effort and Inspection: symmetric chest movement; Negative for respiratory distress Cardio regular rate, regular rhythm and no murmurs Peripheral Pulses: pulses 2+ throughout GI normal to inspection, nondistended, normoactive bowel sounds and non-tender Palpation: Negative for guarding or rebound tenderness present Back/Spine no thoracic nor lumbar tenderness Back/Spine Narrative: Tender palpation left flank no rash or ecchymosis. no midline tenderness. Extremity normal to inspection General Extremety ED: Negative for edema or tenderness General Extremity: Negative for edema Neuro oriented x3 and no sensory deficits noted Sensorium / Orientation: awake and alert Skin no rashes or lesions noted and no wounds MDM MDM MDM Narrative Medical decision making narrative: Renal stone protocol initiated for colic symptoms. Urine with blood and no infection. Basic labs stable. Morphine Toradol Zofran fluids given. CT scan confirms 3 mm proximal stone. She started on Flomax. Urine strainer for home. Prior to discharge, pain return retreated with morphine with good improvement of symptoms. Skin follow urology. Prescriptions for pain and nausea for home. Return precautions. All questions were answered. Patient is being discharged under pandemic conditions under declared global, national and state disaster activation, with limited medical resources. Patient and community understands this. Results discussed in layman's terms to the patient satisfaction. All questions answered in layman's terms. Patient understands importance of follow-up care as directed. Patient has been instructed to return to the ED immediately if new symptoms, problems, or questions occur. We mutually agree with the plan of disposition. The patient understand that they may call or return with any questions or concerns at any time. Lab Data Attestation: I reviewed the patient's lab results. Labs: Laboratory Results - last 24 hr 06/09/21 06/09/21 06/09/21 14:38 14:38 14:40 WBC 9.6 RBC 4.89 Hgb 14.2 Hct 44.2 MCV 90.4 MCH 29.0 MCHC 32.1 RDW Std Deviation 42.5 RDW Coeff of Jcarlos 12.8 Plt Count 441 MPV 9.8 Immature Gran % (Auto) 0.400 Neut % (Auto) 64.4 Lymph % (Auto) 28.7 [place] % (Auto) 4.7 Eos % (Auto) 1.2 Baso % (Auto) 0.6 Absolute Neuts (auto) 6.2 Absolute Lymphs (auto) 2.76 Nucleated RBC % 0 Sodium 137 Potassium 3.2 L Chloride 103 Carbon Dioxide 26.0 Anion Gap 8 BUN 10 Creatinine 0.67 Estim Creat Clear Calc 76.80 Est GFR (MDRD) Af Amer 118 Est GFR (MDRD) Non-Af 98 BUN/Creatinine Ratio 14.9 Glucose 105 Calcium 8.9 Urine Color Yellow Urine Clarity Sl. Cloudy Urine pH 6.0 Ur Specific [place] 1.020 Urine Protein 15 H Urine Glucose (UA) Normal Urine Ketones Negative Urine Occult Blood 150 H Urine Nitrite Negative Urine Bilirubin Negative Urine Urobilinogen Normal Ur Leukocyte Esterase Negative Urine RBC 10-25 SEEN Urine WBC 0-5 SEEN Ur Squamous Epith Cells 0-5 SEEN Urine Bacteria RARE Urine Mucus 0 SEEN Radiography Diagnostic Testing: Radiology Impression Abdomen/Pelvis CT 06/09/21 14:33 IMPRESSION: 3 mm stone in the left proximal ureter with moderate left hydronephrosis. Electronically Signed: Santiago Mcgill MD at 15:34 EDT Tel , Service support , Discharge Plan Triage Chief Complaint: Flank Pain ED Provider: Vin Arrieta Dx/Rx/DC Orders Clinical Impression: Urolithiasis, Hematuria Instructions: ED Hematuria, ED Kidney Stone w/ Colic Prescriptions: New ibuprofen 600 MG tablet 600 mg PO Q6H PRN PRN (Reason: pain) Qty: 20 RF: 0 ondansetron 4 mg tablet,disintegrating 4 mg PO Q6H PRN (Reason: nausea and vomiting) Qty: 10 RF: 0 oxycodone-acetaminophen [Percocet] 5-325 mg tablet 1 tab PO Q6H PRN (Reason: pain) 3 Days Qty: 12 RF: 0 tamsulosin [Flomax] 0.4 mg capsule 0.4 mg PO DAILY Qty: 7 RF: 0 No Action norethindrone-ethin estradiol 1-35 mg-mcg tablet 1 tab PO DAILY RF: 0 lansoprazole 30 mg capsule,delayed release(DR/EC) 30 mg PO BID Qty: 28 RF: 0 Primary Care Provider: Dev Field Referrals: Jairo Diaz MD [STAFF PHYSICIAN] - 3-5 Days Dev Field MD [Primary Care Provider] - Activity Restrictions/Additional Instructions: 3 mm left proximal stone. Take medications as prescribed. Follow-up with urology. Return if any worsening symptoms. Disposition Disposition: Home, Self Care Discharge Date/Time: 06/09/21 16:34
--- NOTE | 2021-06-09 14:33 | CT_ITS ---
STUDY: CT ABDOMEN AND PELVIS WITHOUT CONTRAST REASON FOR EXAM: Female, 51 years old. Flank pain. Evaluate for kidney stone. RADIATION DOSAGE (If Supplied By Facility): CTDIvol = ( 6.81 ) mGy, DLP = ( 321.36 ) mGycm TECHNIQUE: Transaxial images were obtained from the dome of the diaphragm to the symphysis pubis without oral contrast, and without intravenous contrast. Sagittal and coronal images were reconstructed. Individualized dose optimization techniques were used for this CT. COMPARISON: 08/03/15 FINDINGS: Evaluation of the abdominal viscera is limited in the absence of intravenous contrast. The visualized lung bases are clear. The visualized portions of the heart and pericardium are within normal limits. There are no calcified gallstones present. The liver demonstrates an unremarkable unenhanced appearance. The spleen is normal in size. The pancreas demonstrates an unremarkable unenhanced appearance. The adrenal glands are within normal limits. There is a 3 mm stone in the left proximal ureter with moderate left hydronephrosis. There are additional no renal or ureteral stones. There is no right hydronephrosis. There is a small hiatal hernia. There is no bowel obstruction or inflammation. The appendix is visualized and appears normal. The aorta is normal in caliber. There is no abdominal or pelvic free air, free fluid, fluid collection or lymphadenopathy. There are no destructive osseous lesions. There are stable degenerative changes at L5/S1. CT/Abdomen/Pelvis without Cont IMPRESSION: 3 mm stone in the left proximal ureter with moderate left hydronephrosis. Electronically Signed: Santiago Mcgill MD at 15:34 EDT Tel , Service support ,
[2021-06-09 14:45] VITALS: BP 158/98; PULSE 69; RESP 15; O2SAT 99
[2021-06-09 14:46] LABS: Mucous, Urine 0 SEEN /hpf (<or=2+)
[2021-06-09 14:50] LABS: Absolute Lymphocyte Count 2.76 X10^3/uL (0.83-4.51); Absolute Neutrophil Count 6.2 X10^3/uL (2.0-7.7); Basophil# 0.06 X10^3/uL; Basophil% 0.6 % (0-1); Eosinophil# 0.12 X10^3/uL; Eosinophils% 1.2 % (0-5); Hematocrit 44.2 % (37-47); Hemoglobin 14.2 g/dL (12.0-15.0); Lymphocyte # 2.76 X10^3/ul (0.83-4.51); Lymphocyte % 28.7 % (19-41); Mean Corp Hgb Conc 32.1 g/dL (32-36); Mean Corpuscular Volume 90.4 fL (81-99); Mean Platelet Vol. 9.8 fl (6.2-12.0); Monocyte# 0.45 X10^3/uL; Monocyte% 4.7 % (0-10); NRBC Flagged by Analyzer 0 % (0-5); Neutrophil # 6.18 X10^3/uL (2.7-7.7); Neutrophil % 64.4 % (47-70); Platelet Count 441 K/mm3 (150-450); RBC Distribution Width CV 12.8 % (11.6-14.6); RBC Distribution Width SD 42.5 fl (35.1-43.9); Red Blood Count 4.89 M/mm3 (4.2-5.4); White Blood Count 9.6 K/mm3 (4.4-11.0)
[2021-06-09 14:51] LABS: Color, Urine Yellow (Yellow); Glucose, Dipstick Normal (Normal); Ketone-Dipstick Negative (Negative); Leukocyte Esterase-Dipstick Negative /ul (Negative); Nitrite-Dipstick Negative (Negative); Occult Blood-Urine 150 /ul (Negative); Protein-Dipstick 15 mg/dl (Negative); Urine Bilirubin Dipstick Negative (Negative); Urine Clarity Sl. Cloudy (Clear); Urine Urobilinogen Normal (Normal)
[2021-06-09] MEDS: Ketorolac 15 MG/ML Vial IV (14:51)
[2021-06-09] MEDS: 0.9% Normal Saline 1,000 ML 250 ML IV (14:52)
[2021-06-09] MEDS: Ondansetron 4 MG/2 ML Vial IV (14:52)
[2021-06-09] MEDS: Morphine 4 MG/ML Syringe IV ×2 (14:52→15:43)
[2021-06-09 14:57] LABS: Bacteria RARE /hpf (None Seen); Red Blood Cells-Urine 10-25 SEEN /hpf (0-5); Squamous Epithelial Cells - UA 0-5 SEEN /hpf (5-10); White Blood Cells 0-5 SEEN /hpf (0-5)
[2021-06-09 15:00] LABS: Anion Gap 8 (5-15); BUN 10 mg/dL (7-18); BUN/Creat Ratio 14.9 RATIO (10-20); Calcium,Total 8.9 mg/dL (8.5-10.1); Chloride 103 mmol/L (98-107); Creatinine, Serum 0.67 mg/dL (0.55-1.02); EST Glomerular Filtration Rate 98 mL/min (>60); Est Glom Filt Rate - Afr Amer 118 mL/min (>60); Glucose 105 mg/dL (74-106); Potassium 3.2 mmol/L (3.5-5.1); Sodium Level 137 mmol/L (136-145)
[2021-06-09] MEDS: Potassium Chloride Oral Tablet 20 MEQ 40 MEQ PO (15:43)
[2021-06-09] MEDS: Tamsulosin HCl 0.4 MG Capsule PO (15:43)
[2021-06-09 16:32] VITALS: BP 135/88; PULSE 90; RESP 15; O2SAT 97
== END 2021-06-09 16:34 | disposition home or self-care (01) ==
PROVIDERS: Emergency Provider Emergency Medicine; PCP Family Medicine
DX: N13.2 Hydronephrosis with renal and ureteral calculous obstruction (principal); E78.5 Hyperlipidemia, unspecified; F32.A Depression, unspecified; F41.9 Anxiety disorder, unspecified; K21.9 Gastro-esophageal reflux disease without esophagitis; M54.16 Radiculopathy, lumbar region; G43.909 Migraine, unspecified, not intractable, without status migrainosus; Z79.899 Other long term (current) drug therapy
CPT/HCPCS: 74176; 80048; 81001; 85025; 96361; 96374; 96375; 99284; J7030; A4216; J2405

== ENCOUNTER → 2021-06-29 15:55 | Outpatient (CLI) | payer OTHER, SELFPAY ==
[2021-06-29 16:00] LABS: Mucous, Urine 0 SEEN /hpf (<or=2+); White Blood Cells 0 SEEN /hpf (0-5)
[2021-06-29 17:01] LABS: Color, Urine Yellow (Yellow); Glucose, Dipstick Normal (Normal); Ketone-Dipstick Negative (Negative); Leukocyte Esterase-Dipstick Negative /ul (Negative); Nitrite-Dipstick Negative (Negative); Occult Blood-Urine 25 /ul (Negative); Protein-Dipstick Negative (Negative); Specific Gravity, Urine 1.025 (1.002-1.030); Urine Bilirubin Dipstick Negative (Negative); Urine Clarity Clear (Clear); Urine Urobilinogen Normal (Normal)
[2021-06-29 17:07] LABS: Squamous Epithelial Cells - UA 0-5 SEEN /hpf (5-10)
[2021-06-29 17:08] LABS: Bacteria RARE /hpf (None Seen); Red Blood Cells-Urine 0-5 SEEN /hpf (0-5)
== END ==
PROVIDERS: PCP Family Medicine; Referring Provider Nurse Practitioner Adult Health; Visit Provider Nurse Practitioner Adult Health
DX: R31.29 Other microscopic hematuria (principal)
CPT/HCPCS: 81001

== ENCOUNTER 2021-12-24 20:31 | Emergency (ER) | payer OTHER, SELFPAY ==
[2021-12-24 20:32] VITALS: BP 160/121; PULSE 92; RESP 16; TEMP 36.8; O2SAT 100; BMI 25.2
--- NOTE | 2021-12-24 21:44 | EKG12_ITS ---
Test Reason : HTN Blood Pressure : / mmHG Vent. Rate : 095 BPM Atrial Rate : 095 BPM P-R Int : 160 ms QRS Dur : 080 ms QT Int : 352 ms P-R-T Axes : 013 013 026 degrees QTc Int : 442 ms Normal sinus rhythm Normal ECG Confirmed by GILBERTO TUCKER, SHERITA ([id number]), movie editor BENNETT CARVER ([id number]) on 12/28/2021 9:26:25 AM Referred By: Confirmed By:SHERITA MACIAS MD
[2021-12-24 22:13] VITALS: BP 143/89; PULSE 98; RESP 15; O2SAT 94
[2021-12-24] MEDS: hydrALAZINE 20 MG/ML Vial 5 MG IV (22:24)
[2021-12-24 22:28] LABS: Absolute Lymphocyte Count 1.67 X10^3/uL (0.83-4.51); Absolute Neutrophil Count 11.6 X10^3/uL (2.0-7.7); Basophil# 0.02 X10^3/uL; Basophil% 0.1 % (0-1); Hematocrit 42.8 % (37-47); Hemoglobin 14.1 g/dL (12.0-15.0); Lymphocyte # 1.67 X10^3/ul (0.83-4.51); Mean Corp Hgb Conc 32.9 g/dL (32-36); Mean Corpuscular Hgb 29.2 pg (27.0-32.0); Mean Corpuscular Volume 88.6 fL (81-99); Mean Platelet Vol. 9.7 fl (6.2-12.0); Monocyte# 0.48 X10^3/uL; Monocyte% 3.5 % (0-10); NRBC Flagged by Analyzer 0 % (0-5); Neutrophil # 11.64 X10^3/uL (2.7-7.7); Platelet Count 426 K/mm3 (150-450); RBC Distribution Width CV 13.1 % (11.6-14.6); RBC Distribution Width SD 42.5 fl (35.1-43.9); Red Blood Count 4.83 M/mm3 (4.2-5.4); White Blood Count 13.9 K/mm3 (4.4-11.0)
[2021-12-24 22:46] LABS: ALB/GLOB Ratio 0.9 RATIO (0.9-2.4); AST(SGOT) 11 U/L (15-37); Alanine Aminotransfer ALT/SGPT 19 U/L (13-56); Albumin, Serum 3.8 g/dL (3.2-5.0); Alkaline Phosphatase 80 U/L (45-117); Anion Gap 6 (5-15); BUN 9 mg/dL (7-18); BUN/Creat Ratio 16.4 RATIO (10-20); Calcium,Total 8.6 mg/dL (8.5-10.1); Chloride 106 mmol/L (98-107); Creatinine, Serum 0.55 mg/dL (0.55-1.02); EST Glomerular Filtration Rate 123 mL/min (>60); Est Glom Filt Rate - Afr Amer 149 mL/min (>60); Estimated Creatinine Clearance 93.56 ml/min; Globulin 4.4 g/dL (2.2-4.2); Glucose 108 mg/dL (74-106); Potassium 3.5 mmol/L (3.5-5.1); Protein, Total 8.2 g/dL (6.4-8.2); Sodium Level 139 mmol/L (136-145); Troponin-I HS 4 pg/mL (3.0-54.0)
[2021-12-24 23:29] VITALS: BP 128/72; PULSE 93; RESP 19; O2SAT 96
[2021-12-24] MEDS: 0.9% Normal Saline 1,000 ML 1000 ML IV (23:39)
--- NOTE | 2021-12-25 00:13 | EX.ED.DYSGE1 ---
HPI History of Present Illness Chief Complaint: Hypertension Informant: patient Onset/Context/Timing Onset: Today Context: Gradual Onset Timing: Continuous Quality: Aching, throbbing Location: Head Worsened by: Nothing Relieved by: Nothing Narrative Narrative: Began today while she was at work. Patient denies any prior history of hypertension. Patient states she had an epidural injection yesterday in her low back. Patient states she has had a headache today. Patient also admits to some blurred vision. Patient admits to some mild nausea. Patient states her blood pressure has gradually gotten worse throughout the night tonight. Patient denies any fevers or chills. Patient denies any chest pain or shortness of breath. [facility] Medical History Allergic rhinitis Anxiety and depression Dislocation of right shoulder joint GERD (gastroesophageal reflux disease) Herpes labialis Hyperlipidemia Lumbar radiculopathy Migraine Screening for intestinal cancer Home Medications norethindrone 1 mg-ethinyl estradiol 35 mcg tablet 1 tab PO DAILY 08/14/19 [History Last Taken Unknown] meloxicam [Mobic] 7.5 mg PO DAILY 12/24/21 [History Last Taken Unknown] Allergy/AdvReac Type Severity Reaction Status Date / Time doxycycline Allergy Unknown Unknown Verified 12/24/21 20:35 sertraline Allergy Unknown Unknown Verified 12/24/21 20:35 Family History Mother Hypertension Hyperlipidemia Lung cancer Heart disease Father Heart disease Hypertension Kidney disease Sister Cervical cancer Brother Hypertension Surgical History History of Social History Smoking Status: Never smoker alcohol intake: never substance use type: does not use additional social history: does not use aspirin or ibuprofen ROS ROS ED Constitutional Constitutional ED: Denies chills or fever(s) Eyes Eyes: Reports blurry vision; Denies change in vision ENT ENT ED: Denies rhinorrhea or sore throat Cardiovascular Cardiovascular: Denies chest pain or palpitations Respiratory/Chest Respiratory/Chest: Denies cough or dyspnea Gastrointestinal Gastrointestinal: Reports nausea; Denies vomiting Genitourinary Genitourinary ED: Denies dysuria or hematuria Musculoskeletal Musculoskeletal: Reports back pain; Denies neck pain Integumentary Denies abscess or rash Neurologic Neurologic: Reports headache(s); Denies weakness Allergic/Immunologic Allergic/Immunologic ED: Denies mouth swelling or urticaria EXAM Physical Exam Const Vital Signs: 12/24/21 20:32 12/24/21 21:51 12/24/21 22:13 Temperature 98.3 F Temperature Source Temporal Pulse Rate 92 98 Respiratory Rate 16 15 Respiratory Effort Normal Respiratory Pattern Normal Blood Pressure 160/121 H 143/89 H Blood Pressure Mean 134 107 Pulse Ox 100 94 Oxygen Delivery Method Room Air Room Air 12/24/21 23:29 12/25/21 00:32 Temperature Temperature Source Pulse Rate 93 93 Respiratory Rate 19 H 14 Respiratory Effort Respiratory Pattern Blood Pressure 128/72 H 138/81 H Blood Pressure Mean 90 100 Pulse Ox 96 99 Oxygen Delivery Method Room Air Room Air Positive well nourished and well developed General Appearance ED: well developed and NAD HEENT Reports moist mucous membranes Neck supple and no JVD Resp normal respiratory effort and clear to auscultation bilaterally Cardio regular rate, regular rhythm and no murmurs GI normal to inspection, nondistended, normoactive bowel sounds and non-tender Palpation: soft Extremity normal to inspection General Extremety ED: Negative for edema or tenderness General Extremity: Negative for edema Neuro oriented x3, CN's II-XII intact bilaterally and no sensory deficits noted Sensorium / Orientation: alert Motor Exam: strength 5/5 throughout Psych mental status grossly normal Skin no rashes or lesions noted MDM MDM MDM Narrative Medical decision making narrative: Patient was given a dose of hydralazine here. EKG was obtained. On my interpretation, it showed a normal sinus rhythm with a rate of 95. [place] interval, QRS interval, and QTc intervals were all normal. [place] was normal. There are no acute ST or T wave changes. CBC shows a mild leukocytosis of 13.9. This is most likely a steroid reaction from the epidural injection yesterday. Comprehensive metabolic profile was within normal limits. High-sensitivity troponin was normal. Patient's blood pressure improved to 128/72. However, patient still has her throbbing headache. Patient is wondering if this is related to her spinal injection. Because of this, patient was given IV fluids and IV caffeine. She is feeling better after this. Patient was advised to rest in a dark quiet room. Patient was instructed to lay flat when she gets home. Patient was instructed to follow-up with her primary care physician in 5 to 7 days. Patient was instructed return if worse in any way. Patient understood and was agreeable with the plan. All questions were answered. Lab Data Attestation: I reviewed the patient's lab results. Labs: Laboratory Results - last 24 hr 12/24/21 12/24/21 22:11 22:11 WBC 13.9 H RBC 4.83 Hgb 14.1 Hct 42.8 MCV 88.6 MCH 29.2 MCHC 32.9 RDW Std Deviation 42.5 RDW Coeff of Jcarlos 13.1 Plt Count 426 MPV 9.7 Immature Gran % (Auto) 0.400 Neut % (Auto) 84.0 H Lymph % (Auto) 12.0 L [place] % (Auto) 3.5 Eos % (Auto) 0.0 Baso % (Auto) 0.1 Absolute Neuts (auto) 11.6 H Absolute Lymphs (auto) 1.67 Nucleated RBC % 0 Sodium 139 Potassium 3.5 Chloride 106 Carbon Dioxide 27.0 Anion Gap 6 BUN 9 Creatinine 0.55 Estim Creat Clear Calc 93.56 Est GFR (MDRD) Af Amer 149 Est GFR (MDRD) Non-Af 123 BUN/Creatinine Ratio 16.4 Glucose 108 H Calcium 8.6 Total Bilirubin 0.20 AST 11 L ALT 19 Alkaline Phosphatase 80 Troponin I High Sens 4 Total Protein 8.2 Albumin 3.8 Globulin 4.4 H Albumin/Globulin Ratio 0.9 EKG Initial EKG: Attestation: I personally reviewed and interpreted this EKG as follows: Interpretation: Sinus Rhythm (95) and No Acute Injury Pattern Discharge Plan Triage Chief Complaint: Hypertension ED Provider: Ty Brown Dx/Rx/DC Orders Clinical Impression: Headache, High blood pressure Instructions: ED High Blood Pressure Hypertension, ED Pain, Acute, Uncertain Cause Prescriptions: No Action norethindrone-ethin estradiol 1-35 mg-mcg tablet 1 tab PO DAILY RF: 0 meloxicam [Mobic] 7.5 mg Tablet 7.5 mg PO DAILY RF: 0 Primary Care Provider: Dev Field Referrals: Dev Field MD [Primary Care Provider] - 5-7 Days Disposition Disposition: Home, Self Care
[2021-12-25 00:32] VITALS: BP 138/81; PULSE 93; RESP 14; O2SAT 99
[2021-12-25 01:40] VITALS: BP 138/51; PULSE 93; RESP 18; O2SAT 99
== END 2021-12-25 01:41 | disposition home or self-care (01) ==
PROVIDERS: Emergency Provider Emergency Medicine; PCP Family Medicine; Visit Provider Emergency Medicine
DX: R51.9 Headache, unspecified (principal); R03.0 Elevated blood-pressure reading, without diagnosis of hypertension; R11.0 Nausea; H53.8 Other visual disturbances
CPT/HCPCS: 80053; 84484; 85025; 93005; 96361; 96365; 96375; 99283; J7030; J7040; A4216

== ENCOUNTER → 2022-04-12 | Outpatient (CLI) | payer OTHER, SELFPAY ==
--- NOTE | 2022-04-12 09:31 | BI_ITS ---
MAMMOGRAPHY - BILATERAL SCREENING REASON FOR EXAM: Female, 52 years old. Routine annual screening examination. PERTINENT HISTORY: Non-contributory. TECHNIQUE: Digital bilateral breast sheryl (3D mammographic acquisition) in the CC and MLO projections. 2-D mediolateral oblique (MLO) and craniocaudad (CC) views of both breasts were obtained. CAD: Full Field Digital Mammography with Computer Added Detection was performed. COMPARISON: Comparison is made with prior study dated 04/09/2021 and 02/26/2020. FINDINGS: Breast Composition: The breasts are extremely dense, which lowers the sensitivity of mammography. There are no dominant masses or suspicious calcifications. Stable small benign-appearing bilateral axillary lymph nodes. No other significant abnormalities are identified. There has been no significant change since the prior study. BI/SCRN MAMM (CAD)W/SHERYL BILAT IMPRESSION: Stable bilateral screening mammogram. Yearly follow-up mammogram recommended. (A) ASSESSMENT CATEGORY: BIRADS Category 2: Benign. A letter regarding these results will be sent to the patient by the facility within 30 days. Approximately 10% of breast cancers are not detected by mammography. A normal mammogram should not delay biopsy of a clinically suspicious abnormality. [id number] Electronically Signed: Alfred Hobbs MD at 10:08 EDT ,
== END | disposition home or self-care (01) ==
LOC: OPBI 09:29
PROVIDERS: PCP Family Medicine; Visit Provider Obstetrics & Gynecology
DX: Z12.31 Encounter for screening mammogram for malignant neoplasm of breast (principal)
CPT/HCPCS: 77063; 77067

== ENCOUNTER 2022-08-02 12:50 | Outpatient (CLI) | payer OTHER, SELFPAY ==
[2022-08-02 13:32] LABS: Hematocrit 43.9 % (37-47); Hemoglobin 14.1 g/dL (12.0-15.0); Mean Corp Hgb Conc 32.1 g/dL (32-36); Mean Corpuscular Hgb 29.2 pg (27.0-32.0); Mean Corpuscular Volume 90.9 fL (81-99); Mean Platelet Vol. 9.8 fl (6.2-12.0); Platelet Count 402 K/mm3 (150-450); RBC Distribution Width CV 12.4 % (11.6-14.6); RBC Distribution Width SD 41.3 fl (35.1-43.9); Red Blood Count 4.83 M/mm3 (4.2-5.4)
== END 2022-08-02 23:59 | disposition home or self-care (01) ==
LOC: LAB 12:50
PROVIDERS: PCP Family Medicine; Visit Provider Obstetrics & Gynecology
DX: N92.0 Excessive and frequent menstruation with regular cycle (principal)
CPT/HCPCS: 36415; 85027

== ENCOUNTER → 2022-08-31 | Outpatient (CLI) | payer OTHER, SELFPAY ==
[2022-08-31 15:57] LABS: Mucous, Urine 0 SEEN /hpf (<or=2+); Red Blood Cells-Urine 0 SEEN /hpf (0-5)
[2022-08-31 17:58] LABS: Absolute Lymphocyte Count 1.53 X10^3/uL (0.83-4.51); Absolute Neutrophil Count 12.6 X10^3/uL (2.0-7.7); Basophil# 0.03 X10^3/uL; Basophil% 0.2 % (0-1); Hematocrit 39.7 % (37-47); Hemoglobin 13.4 g/dL (12.0-15.0); Lymphocyte # 1.53 X10^3/ul (0.83-4.51); Lymphocyte % 10.2 % (19-41); Mean Corp Hgb Conc 33.8 g/dL (32-36); Mean Corpuscular Hgb 30.3 pg (27.0-32.0); Mean Corpuscular Volume 89.8 fL (81-99); Monocyte# 0.72 X10^3/uL; Monocyte% 4.8 % (0-10); NRBC Flagged by Analyzer 0 % (0-5); Neutrophil # 12.62 X10^3/uL (2.7-7.7); Neutrophil % 84.3 % (47-70); Platelet Count 384 K/mm3 (150-450); RBC Distribution Width CV 12.9 % (11.6-14.6); RBC Distribution Width SD 42.2 fl (35.1-43.9); Red Blood Count 4.42 M/mm3 (4.2-5.4)
[2022-08-31 18:16] LABS: AST(SGOT) 9 U/L (15-37); Alanine Aminotransfer ALT/SGPT 24 U/L (13-56); Albumin, Serum 3.5 g/dL (3.2-5.0); Alkaline Phosphatase 76 U/L (45-117); Anion Gap 7 (5-15); BUN 11 mg/dL (7-18); BUN/Creat Ratio 20.5 RATIO (10-20); Calcium,Total 9.3 mg/dL (8.5-10.1); Chloride 108 mmol/L (98-107); Color, Urine Yellow (Yellow); Creatinine, Serum 0.54 mg/dL (0.55-1.02); EST Glomerular Filtration Rate 126 mL/min (>60); Est Glom Filt Rate - Afr Amer 152 mL/min (>60); Globulin 3.6 g/dL (2.2-4.2); Glucose 111 mg/dL (74-106); Glucose, Dipstick Normal (Normal); Ketone-Dipstick Negative (Negative); Leukocyte Esterase-Dipstick 25 /ul (Negative); Magnesium 2.4 mg/dL (1.6-2.6); Nitrite-Dipstick Negative (Negative); Occult Blood-Urine 50 /ul (Negative); Potassium 4.4 mmol/L (3.5-5.1); Protein, Total 7.1 g/dL (6.4-8.2); Protein-Dipstick Negative (Negative); Sodium Level 138 mmol/L (136-145); Specific Gravity, Urine 1.025 (1.002-1.030); Urine Bilirubin Dipstick Negative (Negative); Urine Clarity Clear (Clear); Urine Urobilinogen Normal (Normal)
[2022-08-31 18:30] LABS: Bacteria RARE /hpf (None Seen); Squamous Epithelial Cells - UA 5-10 SEEN /hpf (5-10); White Blood Cells 0-5 SEEN /hpf (0-5)
== END | disposition home or self-care (01) ==
LOC: MFPLAB 15:55
PROVIDERS: PCP Family Medicine; Referring Provider Family Medicine; Visit Provider Family Medicine
DX: R03.0 Elevated blood-pressure reading, without diagnosis of hypertension (principal)
CPT/HCPCS: 36415; 80053; 81001; 83735; 85025

== ENCOUNTER → 2022-09-12 | Outpatient (CLI) | payer OTHER, SELFPAY ==
[2022-09-12 17:06] LABS: Absolute Lymphocyte Count 3.09 X10^3/uL (0.83-4.51); Absolute Neutrophil Count 8.2 X10^3/uL (2.0-7.7); Basophil# 0.05 X10^3/uL; Basophil% 0.4 % (0-1); Eosinophil# 0.08 X10^3/uL; Eosinophils% 0.7 % (0-5); Hematocrit 39.1 % (37-47); Hemoglobin 12.9 g/dL (12.0-15.0); Lymphocyte # 3.09 X10^3/ul (0.83-4.51); Lymphocyte % 25.8 % (19-41); Mean Corpuscular Hgb 29.8 pg (27.0-32.0); Mean Corpuscular Volume 90.3 fL (81-99); Mean Platelet Vol. 9.2 fl (6.2-12.0); Monocyte# 0.47 X10^3/uL; Monocyte% 3.9 % (0-10); NRBC Flagged by Analyzer 0 % (0-5); Neutrophil # 8.23 X10^3/uL (2.7-7.7); Neutrophil % 68.7 % (47-70); Platelet Count 390 K/mm3 (150-450); RBC Distribution Width SD 43.2 fl (35.1-43.9); Red Blood Count 4.33 M/mm3 (4.2-5.4)
== END | disposition home or self-care (01) ==
LOC: LAB 16:42
PROVIDERS: PCP Family Medicine; Referring Provider Family Medicine; Visit Provider Family Medicine
DX: D72.829 Elevated white blood cell count, unspecified (principal)
CPT/HCPCS: 36415; 85025

== ENCOUNTER → 2023-04-14 | Outpatient (CLI) | payer OTHER, SELFPAY ==
--- NOTE | 2023-04-14 07:13 | BI_ITS ---
MAMMOGRAPHY - BILATERAL SCREENING REASON FOR EXAM: Female, 53 years old. Routine annual screening examination. PERTINENT HISTORY: Non-contributory. TECHNIQUE: Digital bilateral breast sheryl (3D mammographic acquisition) in the CC and MLO projections. 2-D mediolateral oblique (MLO) and craniocaudad (CC) views of both breasts were obtained. CAD: Full Field Digital Mammography with Computer Added Detection was performed. COMPARISON: Comparison is made with prior study dated April 12, 2022 and April 09, 2021. FINDINGS: Breast Composition: The breasts are extremely dense, which lowers the sensitivity of mammography. There are no dominant masses or suspicious calcifications. Stable fat-containing bilateral axillary lymph nodes. No other significant abnormalities are identified. There has been no significant change since the prior study. BI/SCRN MAMM (CAD)W/SHERYL BILAT IMPRESSION: Stable bilateral screening mammogram. Yearly follow-up mammogram recommended. (A) ASSESSMENT CATEGORY: BIRADS Category 2: Benign. A letter regarding these results will be sent to the patient by the facility within 30 days. Approximately 10% of breast cancers are not detected by mammography. A normal mammogram should not delay biopsy of a clinically suspicious abnormality. [id number] Electronically Signed: Alfred Hobbs MD at 8:15 EDT ,
== END | disposition home or self-care (01) ==
LOC: OPBI 07:11
PROVIDERS: PCP Family Medicine; Referring Provider Obstetrics & Gynecology; Visit Provider Obstetrics & Gynecology
DX: Z12.31 Encounter for screening mammogram for malignant neoplasm of breast (principal)
CPT/HCPCS: 77063; 77067

== ENCOUNTER 2023-11-22 15:24 | Outpatient (REF) | payer SELFPAY ==
[2023-11-22 15:25] VITALS: BP 188/111; PULSE 95; RESP 18; TEMP 35.9; BMI 25.4
[2023-11-22 15:29] VITALS: O2SAT 100
[2023-11-22] MEDS: Tetracaine 0.5% Ophthalmic Bottle 3 DRP EACH EYE (15:40)
[2023-11-22 15:41] VITALS: BP 145/96; PULSE 90; RESP 16; TEMP 36.2; O2SAT 96
--- NOTE | 2023-11-22 16:09 | ED.RN ---
Nurse called and updated patient's
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
[2023-11-22 16:28] VITALS: BP 145/63; PULSE 89; RESP 18; TEMP 36.7; O2SAT 95
[2023-11-22 17:00] VITALS: BP 130/73; PULSE 69; RESP 16; TEMP 36.7; O2SAT 98
[2023-11-22 17:33] LABS: HIV - WCH Non-Reactive (Nonreactive); Hepatitis B Surface Antibody Non-Reactive; Hepatitis B Surface Antigen Non-Reactive (Nonreactive); Hepatitis C Antibody Non-Reactive (Nonreactive)
[2023-11-22] MEDS: Fluorescein 1 MG STRIP 1 STRIP EACH EYE (17:56)
[2023-11-22 18:17] VITALS: BP 145/84; PULSE 77; RESP 16; TEMP 37; O2SAT 97
[2023-11-22] MEDS: Ciprofloxacin 0.3% 2.5ml Bottle 1 DRP EACH EYE (18:20)
== END 2023-11-22 18:31 | disposition home or self-care (01) ==
LOC: ED 15:24
PROVIDERS: PCP Family Medicine; Visit Provider Emergency Medicine
DX: Z77.21 Contact with and (suspected) exposure to potentially hazardous body fluids (principal); E78.00 Pure hypercholesterolemia, unspecified; K21.9 Gastro-esophageal reflux disease without esophagitis; H10.9 Unspecified conjunctivitis; S05.01XA Injury of conjunctiva and corneal abrasion without foreign body, right eye, initial encounter; X58.XXXA Exposure to other specified factors, initial encounter; Y99.0 Civilian activity done for income or pay; Y92.239 Unspecified place in hospital as the place of occurrence of the external cause
CPT/HCPCS: 86703; 86706; 86803; 87340; J7030

== ENCOUNTER → 2024-04-16 | Outpatient (CLI) | payer OTHER, SELFPAY ==
--- NOTE | 2024-04-16 08:26 | BI_ITS ---
MAMMOGRAPHY - BILATERAL SCREENING REASON FOR EXAM: Female, 54 years old. Routine annual screening examination. PERTINENT HISTORY: Non-contributory. TECHNIQUE: Digital bilateral breast sheryl (3D mammographic acquisition) in the CC and MLO projections. 2-D mediolateral oblique (MLO) and craniocaudad (CC) views of both breasts were obtained. CAD: Full Field Digital Mammography with Computer Added Detection was performed. COMPARISON: Comparison is made with prior study of April 14, 2023 and April 12, 2022. FINDINGS: Breast Composition: The breasts are extremely dense, which lowers the sensitivity of mammography. There are no dominant masses or suspicious calcifications. Stable benign-appearing bilateral axillary lymph nodes. No other significant abnormalities are identified. There has been no significant change since the prior study. BI/SCRN MAMM (CAD)W/SHERYL BILAT IMPRESSION: Stable bilateral screening mammogram. Yearly follow-up mammogram recommended. (A) ASSESSMENT CATEGORY: BIRADS Category 2: Benign. A letter regarding these results will be sent to the patient by the facility within 30 days. Approximately 10% of breast cancers are not detected by mammography. A normal mammogram should not delay biopsy of a clinically suspicious abnormality. [id number] Electronically Signed: Alfred Hobbs MD at 9:04 EDT ,
== END | disposition home or self-care (01) ==
LOC: OPBI 08:25
PROVIDERS: PCP Family Medicine; Referring Provider Obstetrics & Gynecology; Visit Provider Obstetrics & Gynecology
DX: Z12.31 Encounter for screening mammogram for malignant neoplasm of breast (principal)
CPT/HCPCS: 77063; 77067

== ENCOUNTER → 2024-05-20 | Outpatient (CLI) | payer OTHER, SELFPAY ==
[2024-05-20 15:53] LABS: Anion Gap 7 (5-15); BUN 10 mg/dL (7-18); BUN/Creat Ratio 15.8 RATIO (10-20); Calcium,Total 9.5 mg/dL (8.5-10.1); Chloride 104 mmol/L (98-107); Cholesterol 237 mg/dL (200); Creatinine, Serum 0.63 mg/dL (0.55-1.02); EST Glomerular Filtration Rate 103 mL/min (>60); Est Glom Filt Rate - Afr Amer 125 mL/min (>60); Glucose 83 mg/dL (74-106); High Density Lipoprotein 58 mg/dL; Potassium 3.8 mmol/L (3.5-5.1); Sodium Level 136 mmol/L (136-145); Triglycerides 142 mg/dL; Very Low Density Lipoprotein 28 mg/dL (5-40)
[2024-05-20 17:54] LABS: Protein, Urine (Random) 37.7 mg/dL (<11.9); Protein:Creat Ratio 140 mg/g CRE (0-200)
== END | disposition home or self-care (01) ==
LOC: MFPLAB 12:06
PROVIDERS: PCP Family Medicine; Visit Provider Family Medicine
DX: I10 Essential (primary) hypertension (principal)
CPT/HCPCS: 36415; 80048; 80061; 82570; 84156

== ENCOUNTER → 2024-06-17 | Outpatient (CLI) | payer OTHER, SELFPAY ==
[2024-06-17 11:19] LABS: Follicle Stimulating Hormone 53.8 mIU/mL
[2024-06-20 21:08] LABS: Estrogen, Total, Serum 37 pg/mL (40-244)
== END | disposition home or self-care (01) ==
LOC: MFPLAB 09:44
PROVIDERS: PCP Family Medicine; Visit Provider Obstetrics & Gynecology
DX: N95.1 Menopausal and female climacteric states (principal)
CPT/HCPCS: 36415; 82672; 83001

== ENCOUNTER → 2024-07-26 | Outpatient (CLI) | payer OTHER, SELFPAY ==
--- NOTE | 2024-07-26 16:50 | RAD_ITS ---
EXAM: XR LEFT SHOULDER COMPLETE, 2 OR MORE VIEWS CLINICAL INDICATION: L shoulder injury TECHNIQUE: Two or more views of the left shoulder. COMPARISON: No relevant prior studies available. FINDINGS: BONES/JOINTS: Unremarkable. No acute fracture. No subluxation. Normal alignment. Preservation of the joint space. No sclerotic or destructive changes observed. SOFT TISSUES: Unremarkable. No soft tissue swelling or gas. No radiopaque foreign body. RAD/Shoulder min 2 Views IMPRESSION: Unremarkable left shoulder x-rays. Electronically Signed: Trung Colon MD at 22:16 EST ,
== END | disposition home or self-care (01) ==
LOC: RAD 16:49
PROVIDERS: PCP Family Medicine; Referring Provider Family Medicine; Visit Provider Family Medicine
DX: M25.512 Pain in left shoulder (principal)
CPT/HCPCS: 73030

== ENCOUNTER → 2024-09-30 | Outpatient (CLI) | payer OTHER, SELFPAY ==
--- NOTE | 2024-09-30 15:23 | US_ITS ---
EXAM: US PELVIS TRANSABDOMINAL AND TRANSVAGINAL, COMPLETE CLINICAL INDICATION: Abnormal uterine and vaginal bleeding TECHNIQUE: Transabdominal and transvaginal pelvic ultrasound was performed with grayscale and color Doppler imaging. Transvaginal imaging was used for better evaluation of the endometrium and adnexa. COMPARISON: No relevant prior studies available. FINDINGS: UTERUS/CERVIX: The uterus measures 7.2 x 3.2 x 4.3 cm. The endometrium measures 5 mm. Anteverted. There is no uterine mass. RIGHT OVARY: The right ovary measures 2.3 x 1.5 x 1.7 cm. Blood flow is present in the right ovary. LEFT OVARY: Left ovary is not visualized. FREE FLUID: None. BLADDER: Unremarkable as visualized. Wall is normal thickness for degree of distention. US/Pelvic w/ Transvaginal IMPRESSION: No acute findings in the pelvis. Electronically Signed: Johnny Pacheco MD at 23:55 EST ,
== END | disposition home or self-care (01) ==
LOC: US 15:20
PROVIDERS: PCP Family Medicine; Referring Provider Obstetrics & Gynecology; Visit Provider Obstetrics & Gynecology
DX: N93.9 Abnormal uterine and vaginal bleeding, unspecified (principal)
CPT/HCPCS: 76830; 76856

== ENCOUNTER → 2024-10-09 | Outpatient (CLI) | payer OTHER, SELFPAY ==
[2024-10-09 17:53] LABS: Absolute Neutrophil Count 6.3 X10^3/uL (2.0-7.7); Basophil# 0.07 X10^3/uL; Basophil% 0.7 % (0-1); Eosinophil# 0.13 X10^3/uL; Eosinophils% 1.3 % (0-5); Hematocrit 43.9 % (37-47); Hemoglobin 14.5 g/dL (12.0-15.0); Lymphocyte % 30.5 % (19-41); Mean Corpuscular Hgb 30.7 pg (27.0-32.0); Mean Corpuscular Volume 92.8 fL (81-99); Mean Platelet Vol. 9.8 fl (6.2-12.0); Monocyte# 0.55 X10^3/uL; Monocyte% 5.4 % (0-10); NRBC Flagged by Analyzer 0 % (0-5); Neutrophil # 6.25 X10^3/uL (2.7-7.7); Neutrophil % 61.6 % (47-70); Platelet Count 383 K/mm3 (150-450); RBC Distribution Width CV 12.7 % (11.6-14.6); RBC Distribution Width SD 43.1 fl (35.1-43.9); Red Blood Count 4.73 M/mm3 (4.2-5.4); White Blood Count 10.2 K/mm3 (4.4-11.0)
[2024-10-09 18:01] LABS: Color, Urine Yellow (Yellow); Glucose, Dipstick Normal (Normal); Ketone-Dipstick Negative (Negative); Leukocyte Esterase-Dipstick Negative /ul (Negative); Nitrite-Dipstick Negative (Negative); Occult Blood-Urine 50 /ul (Negative); Protein-Dipstick 15 mg/dl (Negative); Specific Gravity, Urine 1.025 (1.002-1.030); Urine Clarity Clear (Clear); Urine Urobilinogen Normal (Normal)
[2024-10-09 18:09] LABS: Urine Bilirubin Dipstick 1 mg/dL (Negative)
[2024-10-09 18:10] LABS: ALB/GLOB Ratio 0.9 RATIO (0.9-2.4); AST(SGOT) 15 U/L (15-37); Alanine Aminotransfer ALT/SGPT 24 U/L (13-56); Albumin, Serum 3.6 g/dL (3.2-5.0); Alkaline Phosphatase 84 U/L (45-117); Anion Gap 8 (5-15); BUN 13 mg/dL (7-18); BUN/Creat Ratio 22.8 RATIO (10-20); Calcium,Total 9.2 mg/dL (8.5-10.1); Chloride 105 mmol/L (98-107); Creatinine, Serum 0.57 mg/dL (0.55-1.02); EST Glomerular Filtration Rate 116 mL/min (>60); Est Glom Filt Rate - Afr Amer 141 mL/min (>60); Globulin 4.1 g/dL (2.2-4.2); Glucose 88 mg/dL (74-106); Magnesium 2.5 mg/dL (1.6-2.6); Potassium 3.6 mmol/L (3.5-5.1); Protein, Total 7.7 g/dL (6.4-8.2); Sodium Level 139 mmol/L (136-145)
== END | disposition home or self-care (01) ==
LOC: MTLAB 15:23
PROVIDERS: PCP Family Medicine; Referring Provider Family Medicine; Visit Provider Family Medicine
DX: I10 Essential (primary) hypertension (principal)
CPT/HCPCS: 80053; 81002; 83735; 85025

== ENCOUNTER → 2025-02-05 | Outpatient (CLI) | payer OTHER, SELFPAY ==
[2025-02-05 13:07] LABS: Vitamin D,25 Hydroxy 32.1 ng/mL (30-100)
== END | disposition home or self-care (01) ==
PROVIDERS: PCP Family Medicine
DX: R53.83 Other fatigue (principal)
CPT/HCPCS: 36415; 82306; 84443

== ENCOUNTER → 2025-04-17 | Outpatient (CLI) | payer OTHER, SELFPAY ==
--- NOTE | 2025-04-17 10:26 | BI_ITS ---
EXAM: SCRN MAMM (CAD)W/SHERYL BILAT DATE: 04/17/2025 CLINICAL HISTORY: F, Age 55 y/o , SCREENING No family history. TECHNIQUE: SCRN MAMM (CAD)W/SHERYL BILAT COMPARISON: Prior exam(s) dated April 16, 2024.. FINDINGS: TISSUE DENSITY: The breasts are extremely dense, which lowers the sensitivity of mammography. Bilateral Breast Mammographic Findings: No significant masses, calcifications or other abnormalities are identified. Stable fat containing bilateral axillary lymph nodes. No suspicious masses, areas of developing architectural distortion, or suspicious calcifications. There has been no significant interval change. BI/SCRN MAMM (CAD)W/SHERYL BILAT IMPRESSION: Stable examination OVERALL FINAL ASSESSMENT BI-RADS 2: BENIGN RECOMMENDATION: Routine annual follow-up in 1 Year A letter with findings and recommendations will be mailed to the patient. Reading Location: [place] [id number]
== END | disposition home or self-care (01) ==
LOC: OPBI 10:25
PROVIDERS: PCP Family Medicine; Referring Provider Obstetrics & Gynecology; Visit Provider Obstetrics & Gynecology
DX: Z12.31 Encounter for screening mammogram for malignant neoplasm of breast (principal)
CPT/HCPCS: 77063; 77067

== ENCOUNTER → 2025-05-30 | Outpatient (CLI) | payer OTHER, SELFPAY ==
--- NOTE | 2025-05-30 09:33 | RAD_ITS ---
PROCEDURE: RIBS UNI MIN 3V W/PA CHEST 05/30/2025 REASON FOR EXAM: PAIN, FALL TECHNIQUE: Procedure Code: RADRIB Modality: DX Procedure: RIBS UNI MIN 3V W/PA CHEST COMPARISON: None FINDINGS: PA radiograph of the chest was obtained as well as four views of the right ribs. Heart size and configuration are within normal limits. Pulmonary vasculature and hilar structures are unremarkable. Trachea is midline. Mediastinal structures are unremarkable. Lungs are expanded without evidence of pneumothorax, lung contusion, atelectasis, consolidation, effusion or pneumonic infiltrate. Bony thorax is grossly unremarkable. Four views of the right ribs were obtained and demonstrate no displaced fractures. RAD/Ribs Uni Min 3V w/PA Chest IMPRESSION: No acute cardiopulmonary process identified radiographically. No displaced rib fractures. Reading Location: [id number]
--- NOTE | 2025-05-30 09:33 | RAD_ITS ---
PROCEDURE: RIBS UNI MIN 3V W/PA CHEST 05/30/2025 REASON FOR EXAM: PAIN, FALL TECHNIQUE: Procedure Code: RADRIB Modality: DX Procedure: RIBS UNI MIN 3V W/PA CHEST COMPARISON: None FINDINGS: PA radiograph of the chest was obtained as well as four views of the right ribs. Heart size and configuration are within normal limits. Pulmonary vasculature and hilar structures are unremarkable. Trachea is midline. Mediastinal structures are unremarkable. Lungs are expanded without evidence of pneumothorax, lung contusion, atelectasis, consolidation, effusion or pneumonic infiltrate. Bony thorax is grossly unremarkable. Four views of the right ribs were obtained and demonstrate no displaced fractures. RAD/Ribs Uni Min 3V w/PA Chest IMPRESSION: No acute cardiopulmonary process identified radiographically. No displaced rib fractures. Reading Location: [id number]
== END | disposition home or self-care (01) ==
LOC: MTRAD 09:33
PROVIDERS: PCP Family Medicine; Referring Provider Family Medicine; Visit Provider Family Medicine
DX: R07.81 Pleurodynia (principal)
CPT/HCPCS: 71101